=== PATIENT | female | born 1990 | race Caucasian/White ===

== ENCOUNTER 2017-10-09 13:43 | Emergency (ER) | payer OTHER ==
--- NOTE | 2017-10-09 14:29 | ERPHSYRPT ---
- History of Present Illness Time Seen by Provider: 10/09/17 14:12 Historian: patient, family Exam Limitations: no limitations Physician History: The patient is a 26-year-old female with her complaining of epigastric pain with nausea and vomiting for one month. She also has loose stools after every meal for the past month. 3 weeks ago she was seen in the [facility] for this complaint. She was given Macrobid for 7 days for UTI. After 2 days she saw a local nurse practitioner and discontinued the Macrobid. She was placed on Levaquin for 7 days without resolution. She returned to the nurse practitioner and was placed on an antiviral for possible shingles. She discontinued the antiviral before the duration of the prescription. She wakes up in the morning with a bad taste in her mouth. Eating worsens the epigastric pain. Her epigastric pain is worse upon rising in the morning. Her past medical history is significant for 2 C-sections. She is currently on Depo- Provera. Timing/Duration: week(s) (4), gradual onset, worse Activities at Onset: none Quality: aching, burning, sharpness Abdominal Pain Onset Location: epigastric Pain Radiation: no radiation Severity of Pain-Max: moderate Severity of Pain-Current: moderate Modifying Factors: Improves With: eating (worse), vomiting Associated Symptoms: diarrhea, nausea, vomiting Previous symptoms: same symptoms as today, recently seen, recently treated Allergies/Adverse Reactions: aspirin Allergy (Mild, Verified 10/09/17 14:33) Difficulty Breathing Penicillins Allergy (Mild, Verified 10/09/17 14:33) Hives amoxicillin [Amoxicillin] Allergy (Verified 10/09/17 14:33) Hives morphine Allergy (Verified 10/09/17 14:34) NSAIDS (Non-Steroidal Anti-Inflamma Allergy (Verified 10/09/17 14:33) Hives Hx Tetanus, Diphtheria Vaccination/Date Given: Yes (2009) Hx Influenza Vaccination/Date Given: No Hx Pneumococcal Vaccination/Date Given: No - Review of Systems Constitutional: No Fever, No Chills Eyes: No Symptoms Ears, Nose, & Throat: No Symptoms Respiratory: No Cough, No Dyspnea Cardiac: No Chest Pain, No Edema, No Syncope Abdominal/Gastrointestinal: Abdominal Pain, Nausea, Vomiting, Diarrhea Genitourinary Symptoms: No Dysuria Musculoskeletal: No Back Pain, No Neck Pain Skin: No Rash Neurological: No Dizziness, No Focal Weakness, No Sensory Changes Psychological: No Symptoms Endocrine: No Symptoms Hematologic/Lymphatic: No Symptoms Immunological/Allergic: No Symptoms All Other Systems: Reviewed and Negative - Past Medical History Pertinent Past Medical History: Yes Neurological History: No Pertinent History ENT History: No Pertinent History Cardiac History: No Pertinent History Respiratory History: Asthma Endocrine Medical History: No Pertinent History Musculoskeletal History: No Pertinent History GI Medical History: No Pertinent History History: No Pertinent History Psycho-Social History: No Pertinent History Female Reproductive Disorders: No Pertinent History Other Medical History: polycystic ovarian disease, miscarriage x2, pre eclamplsia - Past Surgical History Past Surgical History: Yes Neuro Surgical History: No Pertinent History Cardiac: No Pertinent History Respiratory: No Pertinent History Gastrointestinal: No Pertinent History Genitourinary: No Pertinent History Musculoskeletal: No Pertinent History Female Surgical History: Dilation & Curettage, Section Other Surgical History: tonsil, fatty tumor on leg, ingrown toenail - Social History Smoking Status: Former smoker How long have you smoked: 3 Exposure to second hand smoke: Yes Alcohol Use: None Drug Use: none Patient Lives Alone: No Significant Family History: no pertinent family hx - Nursing Vital Signs Nursing Vital Signs: Initial Vital Signs Temperature 98.6 F 10/09/17 13:53 Pulse Rate 109 H 10/09/17 13:53 Respiratory Rate 18 10/09/17 13:53 Blood Pressure 141/93 10/09/17 13:53 O2 Sat by Pulse Oximetry 98 10/09/17 13:53 Pain Scale Pain Intensity 6 - Physical Exam General Appearance: no apparent distress, alert Eye Exam: PERRL/EOMI, eyes nml inspection Ears, Nose, Throat Exam: normal ENT inspection, pharynx normal, moist mucous membranes Neck Exam: normal inspection, non-tender, supple, full range of motion Respiratory Exam: normal breath sounds, lungs clear, No respiratory distress Cardiovascular Exam: regular rate/rhythm, normal heart sounds Gastrointestinal/Abdomen Exam: normal bowel sounds, tenderness (epigastric) Pelvic Exam: not done Rectal Exam: not done Back Exam: normal inspection, normal range of motion, No CVA tenderness, No vertebral tenderness Extremity Exam: normal inspection, normal range of motion, pelvis stable Neurologic Exam: alert, oriented x 3, cooperative, normal mood/affect, nml cerebellar function, sensation nml, No motor deficits Skin Exam: normal color, warm, dry SpO2 Interpretation: normal Ordered Tests: Active Orders 24 hr Category Date Time Status AMYLASE Stat Lab 10/09/17 14:35 Completed CBC W DIFF Stat Lab 10/09/17 14:35 Completed CMP Stat Lab 10/09/17 14:35 Completed CULTURE,URINE Stat Lab 10/09/17 14:50 Received HCG QUALITATIVE,SERUM Stat Lab 10/09/17 Completed LIPASE Stat Lab 10/09/17 14:35 Completed UA W/ MICROSCOPIC Stat Lab 10/09/17 14:50 Completed Medication Summary Discontinued Medications Generic Name Dose Route Start Last Admin Trade Name Freq PRN Reason Stop Dose Admin Ondansetron HCl 4 mg 10/09/17 14:35 10/09/17 14:46 Zofran Odt 4 Mg PO 10/09/17 14:36 4 mg STAT ONE Administration Ondansetron HCl Confirm 10/09/17 14:43 Zofran Odt 4 Mg Administered 10/09/17 14:44 Dose 4 mg .ROUTE [employer] ONE Lab/Rad Data: Laboratory Result Diagrams 10/09/17 14:35 10/09/17 14:35 Laboratory Results 10/09/17 10/09/17 10/09/17 Range/Units Unknown 14:50 14:35 WBC (4.0-10.5) K/mm3 RBC (4.1-5.4) M/mm3 Hgb (12.0-16.0) gm/dl Hct (35-47) % MCV (78-100) fl MCH (26-32) pg MCHC (32-36) g/dl RDW (11.5-14.0) % Plt Count (150-450) K/mm3 MPV (6-9.5) fl Gran % (36.0-66.0) % Eos # (Auto) (0-0.5) Absolute Lymphs (auto) (1.0-4.6) Absolute Monos (auto) (0.0-1.3) Lymphocytes % (24.0-44.0) % Monocytes % (0.0-12.0) % Eosinophils % (0.00-5.0) % Basophils % (0.0-0.4) % Absolute Granulocytes (1.4-6.9) Basophils # (0-0.4) Sodium 138 (137-145) mmol/L Potassium 3.8 (3.5-5.1) mmol/L Chloride 105 (98-107) mmol/L Carbon Dioxide 20 L (22-30) mmol/L Anion Gap 16.2 H (5-15) MEQ/L BUN 12 (7-17) mg/dL Creatinine 0.59 (0.52-1.04) mg/dL Estimated GFR > 60.0 ML/MIN Glucose 253 H (74-106) mg/dL Calcium 9.2 (8.4-10.2) mg/dL Total Bilirubin 0.40 (0.2-1.3) mg/dL AST 13 L (14-36) U/L ALT 23 (0-35) U/L Alkaline Phosphatase 71 (38-126) U/L Serum Total Protein 7.2 (6.3-8.2) g/dL Albumin 4.0 (3.5-5.0) g/dL Amylase 47 (30-110) U/L Lipase 60 (23-300) U/L Serum , Qual NEGATIVE (Negative) Ur Collection Type VOID Urine Color YELLOW (YELLOW) Urine Appearance CLOUDY (CLEAR) Urine pH 5.0 (5-6) Ur Specific Warrior 1.030 (1.005-1.025) Urine Protein 2+ (Negative) Urine Ketones TRACE (NEGATIVE) Urine Blood 250 (0-5) Dave/ul Urine Nitrite NEGATIVE (NEGATIVE) Urine Bilirubin NEGATIVE (NEGATIVE) Urine Urobilinogen NORMAL (0-1) mg/dL Ur Leukocyte Esterase TRACE (NEGATIVE) Urine Microscopic RBC 0-2 (0-2) /HPF Urine Microscopic WBC 10-15 (0-5) /HPF Ur Epithelial Cells MODERATE (FEW) /HPF Calcium Oxalate Crystal 5-10 (NEGATIVE) /HPF Amorphous Crystals MODERATE (NEGATIVE) /HPF Urine Bacteria MODERATE (NEGATIVE) /HPF Urine Mucus SLIGHT (NEGATIVE) /HPF Urine Culture Reflexed YES (NO) Urine Glucose 250 (NEGATIVE) mg/dL Specimen Received 10/09/17 1500 10/09/17 Range/Units 14:35 WBC 8.2 (4.0-10.5) K/mm3 RBC 4.49 (4.1-5.4) M/mm3 Hgb 14.0 (12.0-16.0) gm/dl Hct 39.2 (35-47) % MCV 87.3 (78-100) fl MCH 31.2 (26-32) pg MCHC 35.7 (32-36) g/dl RDW 13.0 (11.5-14.0) % Plt Count 255 (150-450) K/mm3 MPV 9.4 (6-9.5) fl Gran % 54.4 (36.0-66.0) % Eos # (Auto) 0.35 (0-0.5) Absolute Lymphs (auto) 2.57 (1.0-4.6) Absolute Monos (auto) 0.77 (0.0-1.3) Lymphocytes % 31.3 (24.0-44.0) % Monocytes % 9.4 (0.0-12.0) % Eosinophils % 4.3 (0.00-5.0) % Basophils % 0.6 (0.0-0.4) % Absolute Granulocytes 4.47 (1.4-6.9) Basophils # 0.05 (0-0.4) Sodium (137-145) mmol/L Potassium (3.5-5.1) mmol/L Chloride (98-107) mmol/L Carbon Dioxide (22-30) mmol/L Anion Gap (5-15) MEQ/L BUN (7-17) mg/dL Creatinine (0.52-1.04) mg/dL Estimated GFR ML/MIN Glucose (74-106) mg/dL Calcium (8.4-10.2) mg/dL Total Bilirubin (0.2-1.3) mg/dL AST (14-36) U/L ALT (0-35) U/L Alkaline Phosphatase (38-126) U/L Serum Total Protein (6.3-8.2) g/dL Albumin (3.5-5.0) g/dL Amylase (30-110) U/L Lipase (23-300) U/L Serum , Qual (Negative) Ur Collection Type Urine Color (YELLOW) Urine Appearance (CLEAR) Urine pH (5-6) Ur Specific Warrior (1.005-1.025) Urine Protein (Negative) Urine Ketones (NEGATIVE) Urine Blood (0-5) Dave/ul Urine Nitrite (NEGATIVE) Urine Bilirubin (NEGATIVE) Urine Urobilinogen (0-1) mg/dL Ur Leukocyte Esterase (NEGATIVE) Urine Microscopic RBC (0-2) /HPF Urine Microscopic WBC (0-5) /HPF Ur Epithelial Cells (FEW) /HPF Calcium Oxalate Crystal (NEGATIVE) /HPF Amorphous Crystals (NEGATIVE) /HPF Urine Bacteria (NEGATIVE) /HPF Urine Mucus (NEGATIVE) /HPF Urine Culture Reflexed (NO) Urine Glucose (NEGATIVE) mg/dL Specimen Received - Progress Progress: improved Counseled pt/family regarding: lab results, diagnosis, need for follow-up - Departure Time of Disposition: 15:47 Departure Disposition: Home Clinical Impression: Blood glucose elevated, UTI (urinary tract infection), Gastritis Condition: Stable Critical Care Time: No Referrals: BERNARDO LOPEZ NP [Primary Care Provider] - Additional Instructions: You have gastritis. Take omeprazole 20 mg daily for 14 days. You have a UTI. Take Keflex 500 mg 4 times a day for 7 days. You have nausea. Take Zofran ODT 4 mg every 6 hours as needed. You also have an elevated blood glucose level. Please follow-up with your primary medical doctor this week for further evaluation. Prescriptions: Ondansetron ODT 4 MG [Zofran Odt 4 mg] 1 tab PO Q6H PRN PRN #10 tab.rapdis PRN Reason: Nausea/Vomiting Ondansetron ODT 4 MG [Zofran Odt 4 mg] 1 tab PO Q6H PRN PRN #10 tab.rapdis PRN Reason: Nausea/Vomiting Cephalexin [Keflex] 500 mg PO QID #28 capsule Cephalexin Mh 500 mg [Keflex 500 mg] 1 cap PO QID #28 capsule Omeprazole 20 MG [Prilosec 20 mg] 20 mg PO DAILY #14 capsule. Omeprazole 20 MG [Prilosec 20 mg] 20 mg PO DAILY #14 capsule.
[2017-10-09] MEDS ORDERED: ZOFRAN ODT 4 MG PO ONE (14:35)
[2017-10-09] MEDS ORDERED: ZOFRAN ODT 4 MG ONE (14:43)
[2017-10-09 15:02] LABS: BASOPHIL % 0.6 % (0.0-0.4); Basophil (Absolute #) 0.05 (0-0.4); Eosinophil % 4.3 % (0.00-5.0); Eosinophil (Absolute #) 0.35 (0-0.5); Granulocyte Absolute (ANC) 4.47 (1.4-6.9); Granulocytes % 54.4 % (36.0-66.0); Hematocrit 39.2 % (35-47); Lymphocyte (Absolute #) 2.57 (1.0-4.6); Lymphocytes % 31.3 % (24.0-44.0); Mean Cell Volume 87.3 fl (78-100); Mean Corpuscular Hemoglobin 31.2 pg (26-32); Mean Corpuscular Hgb Concent. 35.7 g/dl (32-36); Mean Platelet Volume 9.4 fl (6-9.5); Monocyte (Absolute #) 0.77 (0.0-1.3); Monocytes % 9.4 % (0.0-12.0); Platelet Count 255 K/mm3 (150-450); Red Blood Count 4.49 M/mm3 (4.1-5.4); White Blood Count 8.2 K/mm3 (4.0-10.5)
[2017-10-09 15:17] LABS: Amourphous Crystal MODERATE /HPF (NEGATIVE); Appearance CLOUDY (CLEAR); Bacteria MODERATE /HPF (NEGATIVE); Bilirubin NEGATIVE (NEGATIVE); Blood 250 Ery/ul (0-5); Epithelial Cells MODERATE /HPF (FEW); Glucose 250 mg/dL (NEGATIVE); Ketones TRACE (NEGATIVE); Leukocyte Esterase TRACE (NEGATIVE); Mucus SLIGHT /HPF (NEGATIVE); Nitrite NEGATIVE (NEGATIVE); Protein,Urine Dip 2+ (Negative); RBC 0-2 /HPF (0-2); Urobilinogen NORMAL mg/dL (0-1)
[2017-10-09 15:19] LABS: ALKALINE PHOSPHATASE 71 U/L (38-126); AMYLASE 47 U/L (30-110); ANION GAP 16.2 MEQ/L (5-15); BLOOD UREA NITROGEN 12 mg/dL (7-17); CHLORIDE 105 mmol/L (98-107); Calcium 9.2 mg/dL (8.4-10.2); Carbon Dioxide 20 mmol/L (22-30); Creatinine 1 0.59 mg/dL (0.52-1.04); Glucose 253 mg/dL (74-106); LIPASE 60 U/L (23-300); Potassium 3.8 mmol/L (3.5-5.1); SGOT/AST 13 U/L (14-36); SGPT/ALT 23 U/L (0-35); SODIUM 138 mmol/L (137-145); Total Protein 7.2 g/dL (6.3-8.2)
[2017-10-09 16:08] VITALS: BP 121/76; PULSE 90; O2SAT 99
== END 2017-10-09 16:08 | disposition home or self-care (01) ==
LOC: ED 13:43
DX: K29.70 Gastritis, unspecified, without bleeding (principal); N39.0 Urinary tract infection, site not specified; R11.2 Nausea with vomiting, unspecified; R19.7 Diarrhea, unspecified; R73.02 Impaired glucose tolerance (oral)
CPT/HCPCS: 36415; 80053; 81000; 82150; 83690; 84703; 85025; 87086; 99283; Q0162

== ENCOUNTER 2017-10-31 19:17 | Emergency (ER) | payer OTHER ==
[2017-10-31 19:34] VITALS: O2SAT 97
[2017-10-31] MEDS ORDERED: Phenergan 25 MG INJ ONE (19:39)
[2017-10-31] MEDS ORDERED: Sodium Chloride 0.9% 1000 ML 1,000 ML ONE ×2 (19:39→20:17)
--- NOTE | 2017-10-31 19:42 | ERPHSYRPT ---
- History of Present Illness Time Seen by Provider: 10/31/17 19:37 Historian: patient Exam Limitations: no limitations Patient Subjective Stated Complaint: N&V since 0700 today, diarhea Triage Nursing Assessment: Pt c/o pain in both upper quadrants of abdomen, N&V since 0700, diarhea, afebrile, pulse 125, BP 151/95, hypoactive bowel sounds, doesn't appear to be in any distress Physician History: 26-year-old white female with history of asthma, polycystic ovary disease, preeclampsia when she was , diabetes type 2. Patient arrives with complaint of epigastric abdominal pain, vomiting, diarrhea symptoms since this morning while leaving [facility] where her daughter was at. She has no fevers no urinary symptoms no chest pain. Past medical history includes asthma, polycystic ovary disease, preeclampsia when she was , diabetes type 2, she's also been told she has gastritis... Past surgical history includes , D&C, fatty tumor on leg removed. Social history positive tobacco use denies alcohol or illicit drug use. Timing/Duration: today (symptoms since this morning) Activities at Onset: none Quality: burning, cramping Abdominal Pain Onset Location: epigastric Pain Radiation: no radiation Severity of Pain-Max: moderate Severity of Pain-Current: mild Modifying Factors: Improves With: nothing Associated Symptoms: diarrhea, nausea, vomiting, No back, No chest pain, No diaphoresis, No fever/chills, No fatigue, No headache, No heartburn, No loss of appetite, No neck pain, No rash, No shortness of breath, No syncope Previous symptoms: same symptoms as today (seen 1 week ago for similar complaints, dx with gastritis) Allergies/Adverse Reactions: aspirin Allergy (Mild, Verified 10/31/17 19:35) Difficulty Breathing Penicillins Allergy (Mild, Verified 10/31/17 19:35) Hives amoxicillin [Amoxicillin] Allergy (Verified 10/31/17 19:35) Hives morphine Allergy (Verified 10/31/17 19:35) NSAIDS (Non-Steroidal Anti-Inflamma Allergy (Verified 10/31/17 19:35) Hives Home Medications: Dapagliflozin Propanediol [Farxiga] 5 mg PO DAILY 10/31/17 [History] Insulin Detemir [Levemir] 25 units SQ HS 10/31/17 [History] Lisinopril/Hydrochlorothiazide [Lisinopril-Hctz 10-12.5 mg Tab] 1 each PO DAILY 10/31/17 [History] Hx Tetanus, Diphtheria Vaccination/Date Given: Yes (2009) Hx Influenza Vaccination/Date Given: No Hx Pneumococcal Vaccination/Date Given: No - Review of Systems Constitutional: No Fever, No Chills Eyes: No Symptoms Ears, Nose, & Throat: No Symptoms Respiratory: No Cough, No Dyspnea Cardiac: No Chest Pain, No Edema, No Syncope Abdominal/Gastrointestinal: Abdominal Pain, Nausea, Vomiting, Diarrhea, No Constipation, No Hematemesis, No Hematochezia, No Melena, No Dysphagia, No Appetite Changes Genitourinary Symptoms: No Dysuria Musculoskeletal: No Back Pain, No Neck Pain Skin: No Rash Neurological: No Dizziness, No Focal Weakness, No Sensory Changes Psychological: No Symptoms Endocrine: No Symptoms All Other Systems: Reviewed and Negative - Past Medical History Pertinent Past Medical History: Yes Neurological History: No Pertinent History ENT History: No Pertinent History Cardiac History: No Pertinent History Respiratory History: Asthma Endocrine Medical History: No Pertinent History, Diabetes Type II Musculoskeletal History: No Pertinent History GI Medical History: No Pertinent History History: No Pertinent History Psycho-Social History: No Pertinent History Female Reproductive Disorders: No Pertinent History Other Medical History: polycystic ovarian disease, miscarriage x2, pre eclamplsia - Past Surgical History Past Surgical History: Yes Neuro Surgical History: No Pertinent History Cardiac: No Pertinent History Respiratory: No Pertinent History Gastrointestinal: No Pertinent History Genitourinary: No Pertinent History Musculoskeletal: No Pertinent History Female Surgical History: Dilation & Curettage, Section Other Surgical History: tonsil, fatty tumor on leg, ingrown toenail - Social History Smoking Status: Current every day smoker How long have you smoked: 6 months Exposure to second hand smoke: Yes Alcohol Use: None Drug Use: none Patient Lives Alone: No Significant Family History: no pertinent family hx - Female History Hx Last Menstrual Period: 10/09/2017 Hx Now: No - Nursing Vital Signs Nursing Vital Signs: Initial Vital Signs Temperature 98.7 F 10/31/17 19:21 Pulse Rate 135 H 10/31/17 19:21 Blood Pressure 151/95 10/31/17 19:21 O2 Sat by Pulse Oximetry 97 10/31/17 19:21 Pain Scale Pain Intensity 3 - Physical Exam General Appearance: no apparent distress, alert Eye Exam: PERRL/EOMI, eyes nml inspection Ears, Nose, Throat Exam: normal ENT inspection, pharynx normal, moist mucous membranes Neck Exam: normal inspection, non-tender, supple, full range of motion Respiratory Exam: normal breath sounds, lungs clear, No respiratory distress Cardiovascular Exam: regular rate/rhythm, normal heart sounds, normal peripheral pulses, capillary refill <2 sec Gastrointestinal/Abdomen Exam: soft, normal bowel sounds, tenderness (epigastic tenderness), No distention, No mass, No guarding Back Exam: normal inspection, normal range of motion, No CVA tenderness, No vertebral tenderness Extremity Exam: normal inspection, normal range of motion, pelvis stable Neurologic Exam: alert, oriented x 3, cooperative, diagnostic sales specialist II-XII nml as tested, normal mood/affect, nml cerebellar function, sensation nml, No motor deficits Skin Exam: normal color, warm, dry SpO2 Interpretation: normal (97%) SpO2: 97 Oxygen Delivery: Room Air - Course Nursing assessment & vital signs reviewed: Yes EKG Interpreted by Me: RATE (120 bpm), Sinus Rhythm, NORMAL AXIS, Other (EKG: Sinus tachycardia, 120 bpm, normal axis, no acute ST or T wave changes, normal EKG) Ordered Tests: Active Orders 24 hr Category Date Time Status Accucheck STAT Care 10/31/17 19:37 Active EKG-ER Only STAT Care 10/31/17 19:35 Active IV Insertion STAT Care 10/31/17 19:35 Active AMYLASE Stat Lab 10/31/17 19:30 Completed BLOOD CULTURE Stat Lab 10/31/17 20:10 Received CBC W DIFF Stat Lab 10/31/17 19:30 Completed CMP Stat Lab 10/31/17 19:30 Completed CULTURE,URINE Stat Lab 10/31/17 19:37 Received HCG QUALITATIVE,SERUM Stat Lab 10/31/17 19:30 Completed LIPASE Stat Lab 10/31/17 19:30 Completed Lactic Acid Stat Lab 10/31/17 19:40 Completed Lactic Acid Stat Lab 10/31/17 22:05 Completed UA W/ MICROSCOPIC Stat Lab 10/31/17 19:37 Completed Urine Triage Profile Stat Lab 10/31/17 20:01 Completed VENOUS BLOOD GAS Urgent Lab 10/31/17 19:40 Completed Medication Summary Discontinued Medications Generic Name Dose Route Start Last Admin Trade Name Freq PRN Reason Stop Dose Admin Sodium Chloride 1,000 mls @ 999 mls/hr 10/31/17 19:35 10/31/17 20:42 Sodium Chloride 0.9% 1000 Ml IV 10/31/17 20:35 Infused .Q1H1M STA Infusion Sodium Chloride Confirm 10/31/17 19:39 Sodium Chloride 0.9% 1000 Ml Administered 10/31/17 19:40 Dose 1,000 mls @ ud .ROUTE .STK-MED ONE Sodium Chloride 1,000 mls @ 999 mls/hr 10/31/17 19:51 10/31/17 21:39 Sodium Chloride 0.9% 1000 Ml IV 10/31/17 20:51 Infused .Q1H1M STA Infusion Ceftriaxone Sodium/Dextrose 1 g in 50 mls @ 100 mls/hr 10/31/17 20:16 20:42 Rocephin 1 Gm-D5w 50 Ml Bag IV 10/31/17 20:45 Infused STAT STA Infusion Sodium Chloride Confirm 10/31/17 20:17 Sodium Chloride 0.9% 1000 Ml Administered 10/31/17 20:18 Dose 1,000 mls @ ud .ROUTE .STK-MED ONE Ceftriaxone Sodium/Dextrose Confirm 10/31/17 20:17 Rocephin 1 Gm-D5w 50 Ml Bag Administered 10/31/17 20:18 Dose 1 g in 50 mls @ ud IV .STK-MED ONE Promethazine HCl 12.5 mg 10/31/17 19:35 10/31/17 19:44 Phenergan 25 Mg Inj IV 10/31/17 19:36 12.5 mg STAT ONE Administration Promethazine HCl Confirm 10/31/17 19:39 Phenergan 25 Mg Inj Administered 10/31/17 19:40 Dose 25 mg .ROUTE .STK-MED ONE Lab/Rad Data: Laboratory Result Diagrams 10/31/17 19:30 10/31/17 19:30 Laboratory Results 10/31/17 10/31/17 10/31/17 Range/Units 22:05 20:01 19:40 WBC (4.0-10.5) K/mm3 RBC (4.1-5.4) M/mm3 Hgb (12.0-16.0) gm/dl Hct (35-47) % MCV (78-100) fl MCH (26-32) pg MCHC (32-36) g/dl RDW (11.5-14.0) % Plt Count (150-450) K/mm3 MPV (6-9.5) fl Gran % (36.0-66.0) % Eos # (Auto) (0-0.5) Absolute Lymphs (auto) (1.0-4.6) Absolute Monos (auto) (0.0-1.3) Lymphocytes % (24.0-44.0) % Monocytes % (0.0-12.0) % Eosinophils % (0.00-5.0) % Basophils % (0.0-0.4) % Absolute Granulocytes (1.4-6.9) Basophils # (0-0.4) pO2/FiO2 Ratio 21.0 % VBG pH 7.37 (7.32-7.42) VBG pCO2 at Pat Temp 35 L (42-55) mm/Hg VBG pO2 at Pat Temp 42 H (25-40) mm/Hg VBG HCO3 20.2 L (22-28) meq/L VBG O2 Sat (Mile) 83.4 L (95-100) VBG Base Excess -4.3 L (-2.0-2.0) VBG Hemoglobin 16.0 VBG Carboxyhemoglobin 4.6 (0.0-6.9) % T HGB POC Potassium 3.7 (3.5-5.1) Sodium (137-145) mmol/L Potassium (3.5-5.1) mmol/L Chloride (98-107) mmol/L Carbon Dioxide (22-30) mmol/L Anion Gap (5-15) MEQ/L BUN (7-17) mg/dL Creatinine (0.52-1.04) mg/dL Estimated GFR ML/MIN Glucose (74-106) mg/dL Lactic Acid 1.1 (0.4-2.0) Calcium (8.4-10.2) mg/dL Total Bilirubin (0.2-1.3) mg/dL AST (14-36) U/L ALT (0-35) U/L Alkaline Phosphatase (38-126) U/L Serum Total Protein (6.3-8.2) g/dL Albumin (3.5-5.0) g/dL Amylase (30-110) U/L Lipase (23-300) U/L Serum , Qual (Negative) Ur Collection Type Urine Color (YELLOW) Urine Appearance (CLEAR) Urine pH (5-6) Ur Specific Stanton (1.005-1.025) Urine Protein (Negative) Urine Ketones (NEGATIVE) Urine Blood (0-5) Dave/ul Urine Nitrite (NEGATIVE) Urine Bilirubin (NEGATIVE) Urine Urobilinogen (0-1) mg/dL Ur Leukocyte Esterase (NEGATIVE) Urine Microscopic RBC (0-2) /HPF Urine Microscopic WBC (0-5) /HPF Ur Epithelial Cells (FEW) /HPF Urine Bacteria (NEGATIVE) /HPF Urine Mucus (NEGATIVE) /HPF Urine Culture Reflexed (NO) Urine Glucose (NEGATIVE) mg/dL Urine Opiates Level NEGATIVE (NEGATIVE) Ur Methadone NEGATIVE (NEGATIVE) Urine Barbiturates NEGATIVE (NEGATIVE) Ur Phencyclidine (PCP) NEGATIVE (NEGATIVE) Urine Amphetamine NEGATIVE (NEGATIVE) U Benzodiazepine Level NEGATIVE (NEGATIVE) Urine Cocaine NEGATIVE (NEGATIVE) Urine Marijuana (THC) NEGATIVE (NEGATIVE) Specimen Received 10/31/17 10/31/17 10/31/17 Range/Units 19:40 19:37 19:30 WBC (4.0-10.5) K/mm3 RBC (4.1-5.4) M/mm3 Hgb (12.0-16.0) gm/dl Hct (35-47) % MCV (78-100) fl MCH (26-32) pg MCHC (32-36) g/dl RDW (11.5-14.0) % Plt Count (150-450) K/mm3 MPV (6-9.5) fl Gran % (36.0-66.0) % Eos # (Auto) (0-0.5) Absolute Lymphs (auto) (1.0-4.6) Absolute Monos (auto) (0.0-1.3) Lymphocytes % (24.0-44.0) % Monocytes % (0.0-12.0) % Eosinophils % (0.00-5.0) % Basophils % (0.0-0.4) % Absolute Granulocytes (1.4-6.9) Basophils # (0-0.4) pO2/FiO2 Ratio % VBG pH (7.32-7.42) VBG pCO2 at Pat Temp (42-55) mm/Hg VBG pO2 at Pat Temp (25-40) mm/Hg VBG HCO3 (22-28) meq/L VBG O2 Sat (Mile) (95-100) VBG Base Excess (-2.0-2.0) VBG Hemoglobin VBG Carboxyhemoglobin (0.0-6.9) % T HGB POC Potassium (3.5-5.1) Sodium (137-145) mmol/L Potassium (3.5-5.1) mmol/L Chloride (98-107) mmol/L Carbon Dioxide (22-30) mmol/L Anion Gap (5-15) MEQ/L BUN (7-17) mg/dL Creatinine (0.52-1.04) mg/dL Estimated GFR ML/MIN Glucose (74-106) mg/dL Lactic Acid 2.6 H (0.4-2.0) Calcium (8.4-10.2) mg/dL Total Bilirubin (0.2-1.3) mg/dL AST (14-36) U/L ALT (0-35) U/L Alkaline Phosphatase (38-126) U/L Serum Total Protein (6.3-8.2) g/dL Albumin (3.5-5.0) g/dL Amylase (30-110) U/L Lipase (23-300) U/L Serum , Qual NEGATIVE (Negative) Ur Collection Type CLEAN CATCH Urine Color DARK YELLOW (YELLOW) Urine Appearance SLIGHTLY CLOUDY (CLEAR) Urine pH 5.0 (5-6) Ur Specific Stanton 1.030 (1.005-1.025) Urine Protein 30 (Negative) Urine Ketones NEGATIVE (NEGATIVE) Urine Blood 50 (0-5) Dave/ul Urine Nitrite NEGATIVE (NEGATIVE) Urine Bilirubin NEGATIVE (NEGATIVE) Urine Urobilinogen NORMAL (0-1) mg/dL Ur Leukocyte Esterase 1+ (NEGATIVE) Urine Microscopic RBC 5-10 (0-2) /HPF Urine Microscopic WBC 15-25 (0-5) /HPF Ur Epithelial Cells FEW (FEW) /HPF Urine Bacteria FEW (NEGATIVE) /HPF Urine Mucus SLIGHT (NEGATIVE) /HPF Urine Culture Reflexed YES (NO) Urine Glucose 1000 (NEGATIVE) mg/dL Urine Opiates Level (NEGATIVE) Ur Methadone (NEGATIVE) Urine Barbiturates (NEGATIVE) Ur Phencyclidine (PCP) (NEGATIVE) Urine Amphetamine (NEGATIVE) U Benzodiazepine Level (NEGATIVE) Urine Cocaine (NEGATIVE) Urine Marijuana (THC) (NEGATIVE) Specimen Received 10/31/17193610/31/17 10/31/17 Range/Units 19:30 19:30 WBC 12.8 H (4.0-10.5) K/mm3 RBC 5.14 (4.1-5.4) M/mm3 Hgb 16.0 (12.0-16.0) gm/dl Hct 43.9 (35-47) % MCV 85.4 (78-100) fl MCH 31.1 (26-32) pg MCHC 36.4 H (32-36) g/dl RDW 13.1 (11.5-14.0) % Plt Count 310 (150-450) K/mm3 MPV 9.8 H (6-9.5) fl Gran % 73.4 H (36.0-66.0) % Eos # (Auto) 0.25 (0-0.5) Absolute Lymphs (auto) 2.27 (1.0-4.6) Absolute Monos (auto) 0.83 (0.0-1.3) Lymphocytes % 17.8 L (24.0-44.0) % Monocytes % 6.5 (0.0-12.0) % Eosinophils % 2.0 (0.00-5.0) % Basophils % 0.3 (0.0-0.4) % Absolute Granulocytes 9.36 H (1.4-6.9) Basophils # 0.04 (0-0.4) pO2/FiO2 Ratio % VBG pH (7.32-7.42) VBG pCO2 at Pat Temp (42-55) mm/Hg VBG pO2 at Pat Temp (25-40) mm/Hg VBG HCO3 (22-28) meq/L VBG O2 Sat (Mile) (95-100) VBG Base Excess (-2.0-2.0) VBG Hemoglobin VBG Carboxyhemoglobin (0.0-6.9) % T HGB POC Potassium (3.5-5.1) Sodium 139 (137-145) mmol/L Potassium 4.0 (3.5-5.1) mmol/L Chloride 105 (98-107) mmol/L Carbon Dioxide 19 L (22-30) mmol/L Anion Gap 19.1 H (5-15) MEQ/L BUN 12 (7-17) mg/dL Creatinine 0.58 (0.52-1.04) mg/dL Estimated GFR > 60.0 ML/MIN Glucose 199 H (74-106) mg/dL Lactic Acid (0.4-2.0) Calcium 10.0 (8.4-10.2) mg/dL Total Bilirubin 0.60 (0.2-1.3) mg/dL AST 15 (14-36) U/L ALT 26 (0-35) U/L Alkaline Phosphatase 86 (38-126) U/L Serum Total Protein 7.9 (6.3-8.2) g/dL Albumin 4.7 (3.5-5.0) g/dL Amylase 52 (30-110) U/L Lipase 72 (23-300) U/L Serum , Qual (Negative) Ur Collection Type Urine Color (YELLOW) Urine Appearance (CLEAR) Urine pH (5-6) Ur Specific Stanton (1.005-1.025) Urine Protein (Negative) Urine Ketones (NEGATIVE) Urine Blood (0-5) Dave/ul Urine Nitrite (NEGATIVE) Urine Bilirubin (NEGATIVE) Urine Urobilinogen (0-1) mg/dL Ur Leukocyte Esterase (NEGATIVE) Urine Microscopic RBC (0-2) /HPF Urine Microscopic WBC (0-5) /HPF Ur Epithelial Cells (FEW) /HPF Urine Bacteria (NEGATIVE) /HPF Urine Mucus (NEGATIVE) /HPF Urine Culture Reflexed (NO) Urine Glucose (NEGATIVE) mg/dL Urine Opiates Level (NEGATIVE) Ur Methadone (NEGATIVE) Urine Barbiturates (NEGATIVE) Ur Phencyclidine (PCP) (NEGATIVE) Urine Amphetamine (NEGATIVE) U Benzodiazepine Level (NEGATIVE) Urine Cocaine (NEGATIVE) Urine Marijuana (THC) (NEGATIVE) Specimen Received - Progress Progress: improved Progress Note: 10/31/17 19:54 26-year-old white female with history of diabetes, asthma, polycystic ovary disease, Arrives with complaint of epigastric pain symptoms since this morning associated with nausea vomiting and diarrhea. Patient afebrile respiratory rates normal heart rate elevated on arrival at 135 blood pressure stable at 151/95 Patient's pulse ox is 97% good perfusion to all extremities patient really in no acute distress. Heart rate comes down to 120 immediately after assessment. Patient with elevated lactate of 2.6. No signs of sepsis. Patient receiving 2 L of normal saline she is given Phenergan 12.5 IV. Appropriate labs have been obtained urine urine cultures and blood cultures have been obtained. Patient does have diabetes and does have elevated blood sugar of 183. 10/31/17 19:56 10/31/17 20:16 Patient's urine is remarkable for 15-25 white cells and 5-10 red cells also glucose 1000 Patient's chemistry remarkable for a glucose of 199 anion gap is elevated at 19.1 remainder of chemistry is essentially negative Patient is receiving 2 L of normal saline Will add Rocephin 1 g IV. Patient has received Keflex in the past without problems despite her stated allergy of penicillin. Patient currently shows no signs of distress she has good peripheral perfusion, blood pressure 119/88 pulse 91 oxygen saturation 98%. Impression 1 nausea vomiting diarrhea 2. Hyperglycemia 3. Urinary tract infection . Plan: Continue IV normal saline 2 L bolus Recheck lactate. Consider home with Bactrim and Phenergan. 10/31/17 22:31 Patient markedly improved after 2 L of normal saline at 1 g of Rocephin and Phenergan 12.5 mg IV. Lactate is 1.1 on repeat. will discharge Bactrim phenergan and plenty of fluids. - Departure Time of Disposition: 22:32 Departure Disposition: Home Clinical Impression: Hyperglycemia, Volume depletion Urinary tract infection Qualifiers: Urinary tract infection type: site unspecified Hematuria presence: with hematuria Qualified Code(s): N39.0 - Urinary tract infection, site not specified Vomiting Qualifiers: Vomiting type: unspecified Vomiting Intractability: non-intractable Nausea presence: with nausea Qualified Code(s): R11.2 - Nausea with vomiting, unspecified Condition: Fair Critical Care Time: No Referrals: BERNARDO LOPEZ NP [Primary Care Provider] - Instructions: Urinary Tract Infection, Adult (DC) Additional Instructions: Return home. Plenty of fluids clear fluids only 24-48 hours if abdominal pain nausea or vomiting. Phenergan 25 mg orally every 4-6 as needed for nausea, vomiting, or abdominal pain. Bactrim DS one orally twice a day for 10 days Follow-up with your family doctor Return for acute distress or for severe symptoms. Prescriptions: Nitrofurantoin Macro 100 mg [Macrobid 100MG Capsule] 100 mg PO BID #20 cap Promethazine HCl 25 mg [Phenergan 25 mg] 25 mg PO Q4-6HPRN PRN #12 tablet PRN Reason: nausea, vomiting, or abd pain
[2017-10-31] MEDS: Phenergan 25 MG INJ IV ONE (19:44)
[2017-10-31] MEDS: Sodium Chloride 0.9% 1000 ML 1,000 ML IV STA ×2 (19:44→20:19)
[2017-10-31 19:46] LABS: BASOPHIL % 0.3 % (0.0-0.4); Basophil (Absolute #) 0.04 (0-0.4); Eosinophil (Absolute #) 0.25 (0-0.5); Granulocyte Absolute (ANC) 9.36 (1.4-6.9); Granulocytes % 73.4 % (36.0-66.0); Hematocrit 43.9 % (35-47); Lymphocyte (Absolute #) 2.27 (1.0-4.6); Lymphocytes % 17.8 % (24.0-44.0); Mean Cell Volume 85.4 fl (78-100); Mean Corpuscular Hemoglobin 31.1 pg (26-32); Mean Corpuscular Hgb Concent. 36.4 g/dl (32-36); Mean Platelet Volume 9.8 fl (6-9.5); Monocyte (Absolute #) 0.83 (0.0-1.3); Monocytes % 6.5 % (0.0-12.0); Platelet Count 310 K/mm3 (150-450); Red Blood Count 5.14 M/mm3 (4.1-5.4); Red Cell Distribution Width 13.1 % (11.5-14.0); White Blood Count 12.8 K/mm3 (4.0-10.5)
[2017-10-31 19:48] LABS: VBG BASE EXCESS -4.3 (-2.0-2.0); VBG CARBOXYHEMOGLOBIN 4.6 % T HGB (0.0-6.9); VBG HCO3- 20.2 meq/L (22-28); VBG O2 SATURATION 83.4 (95-100); VBG POTASSIUM 3.7 (3.5-5.1); VBG pH 7.37 (7.32-7.42)
[2017-10-31 19:50] LABS: Lactic Acid 2.6 (0.4-2.0)
[2017-10-31 20:02] VITALS: PULSE 96
[2017-10-31 20:07] LABS: Appearance SLIGHTLY CLOUDY (CLEAR); Bilirubin NEGATIVE (NEGATIVE); Blood 50 Ery/ul (0-5); Glucose 1000 mg/dL (NEGATIVE); Ketones NEGATIVE (NEGATIVE); Leukocyte Esterase 1+ (NEGATIVE); Nitrite NEGATIVE (NEGATIVE); Protein,Urine Dip 30 (Negative); Urobilinogen NORMAL mg/dL (0-1)
[2017-10-31 20:08] LABS: Mucus SLIGHT /HPF (NEGATIVE); WBC 15-25 /HPF (0-5)
[2017-10-31 20:09] LABS: Bacteria FEW /HPF (NEGATIVE); Epithelial Cells FEW /HPF (FEW)
[2017-10-31 20:11] LABS: ALBUMIN 4.7 g/dL (3.5-5.0); ALKALINE PHOSPHATASE 86 U/L (38-126); AMYLASE 52 U/L (30-110); ANION GAP 19.1 MEQ/L (5-15); BLOOD UREA NITROGEN 12 mg/dL (7-17); CHLORIDE 105 mmol/L (98-107); Carbon Dioxide 19 mmol/L (22-30); Creatinine 1 0.58 mg/dL (0.52-1.04); Glucose 199 mg/dL (74-106); LIPASE 72 U/L (23-300); SGOT/AST 15 U/L (14-36); SGPT/ALT 26 U/L (0-35); SODIUM 139 mmol/L (137-145); Total Protein 7.9 g/dL (6.3-8.2)
[2017-10-31] MEDS ORDERED: ROCEPHIN 1 Gm-D5w 50 ml Bag** 1 G/50 ML IVPB IV ONE (20:17)
[2017-10-31] MEDS: ROCEPHIN 1 Gm-D5w 50 ml Bag** 1 G/50 ML IVPB IV STA (20:19)
[2017-10-31 20:30] LABS: Amphetamine,Urine NEGATIVE (NEGATIVE); Barbiturate,Urine NEGATIVE (NEGATIVE); Benzodiazepine,Urine NEGATIVE (NEGATIVE); Cocaine,Urine NEGATIVE (NEGATIVE); Methadone,Urine NEGATIVE (NEGATIVE); Opiate,Urine NEGATIVE (NEGATIVE); PCP,Urine NEGATIVE (NEGATIVE); THC,Urine NEGATIVE (NEGATIVE)
[2017-10-31 22:45] VITALS: BP 135/81
== END 2017-10-31 22:46 | disposition home or self-care (01) ==
LOC: ED 19:17
DX: E11.65 Type 2 diabetes mellitus with hyperglycemia (principal); E86.9 Volume depletion, unspecified; N39.0 Urinary tract infection, site not specified; R10.13 Epigastric pain; R11.2 Nausea with vomiting, unspecified; R19.7 Diarrhea, unspecified; Z79.899 Other long term (current) drug therapy; Z79.4 Long term (current) use of insulin
CPT/HCPCS: 36000; 36415; 80053; 80307; 81000; 82150; 82805; 82962; 83605; 83690; 84703; 85025; 87040; 87086; 93005; 96360; 96361; 96374; 99284; J0696; J2550

== ENCOUNTER 2021-07-05 20:25 | Emergency (ER) | payer OTHER ==
[2021-07-05] MEDS ORDERED: Cleocin Phosphate IV 600 MG/4 ML IM STA (20:46)
[2021-07-05] MEDS ORDERED: Cleocin Phosphate IV 600 MG/4 ML ONE (20:53)
--- NOTE | 2021-07-05 21:02 | ERPHSYRPT ---
- History of Present Illness Time Seen by Provider: 07/05/21 20:32 Source: patient Exam Limitations: no limitations Patient Subjective Stated Complaint: pt states she has an abscess on her lt lower leg. states pain is increasing and redness has increased since it was marked today. states she had mrsa last year. Triage Nursing Assessment: pt alert and oriented, answers questions approp. pt ambulatory with steady gait noted. respirations nonlabored. skin warm and dry. redness and warmth noted to lt lower leg. pt reports tenderness to tough. Physician History: 30 years old type I diabetic presented in the ER with chief complaint of left leg swelling and redness for the last couple of days with progressive worsening. Today it is increasing in size and causing moderate intensity sharp pain with palpation, ambulation. No fever or chills reported does have history of MRSA. Timing/Duration: day(s) (2), constant, gradual onset, worse Quality: itchy, painful Severity: moderate Location: extremities Possible Causes: no cause identified Associated Symptoms: rash, swelling/mass/lumps Allergies/Adverse Reactions: NSAIDS (Non-Steroidal Anti-Inflamma Allergy (Severe, Verified 07/05/21 20:50) Anaphylactic Reaction Penicillins Allergy (Severe, Verified 07/05/21 20:50) Anaphylactic Reaction aspirin Allergy (Mild, Verified 07/05/21 20:49) Difficulty Breathing amoxicillin [Amoxicillin] Allergy (Unknown, Verified 07/05/21 20:50) Hives lisinopril Allergy (Unknown, Verified 07/05/21 20:50) morphine Allergy (Unknown, Verified 07/05/21 20:50) Home Medications: Dapagliflozin Propanediol [Farxiga] 5 mg PO DAILY 10/31/17 [History] Insulin Detemir [Levemir] 25 units SQ HS 10/31/17 [History] Lisinopril/Hydrochlorothiazide [Lisinopril-Hctz 10-12.5 mg Tab] 1 each PO DAILY 10/31/17 [History] Hx Tetanus, Diphtheria Vaccination/Date Given: No (2010) Hx Influenza Vaccination/Date Given: No Hx Pneumococcal Vaccination/Date Given: No Immunizations Up to Date: Yes Travel Risk - International Travel Have you traveled outside of the country in past 3 weeks: No - Coronavirus Screening Are you exhibiting any of the following symptoms?: No Close contact with a COVID-19 positive Pt in past 14-21 Days: No - Vaccine Status Have you recieved a Covid-19 vaccination: Yes Environmental Resource Specialist: [employer] - Vaccination Dates Date of 2cond Vaccination (if applicable): july 2020 - Review of Systems Constitutional: No Symptoms Ears, Nose, & Throat: No Symptoms Respiratory: No Symptoms Cardiac: No Symptoms Abdominal/Gastrointestinal: No Symptoms Genitourinary Symptoms: No Symptoms Musculoskeletal: No Symptoms Skin: Induration, Rash, Skin Lesions Neurological: No Symptoms Psychological: No Symptoms Endocrine: No Symptoms Hematologic/Lymphatic: No Symptoms - Past Medical History Pertinent Past Medical History: Yes Neurological History: No Pertinent History ENT History: No Pertinent History Cardiac History: No Pertinent History Respiratory History: Asthma Endocrine Medical History: No Pertinent History, Diabetes Type II Musculoskeletal History: No Pertinent History GI Medical History: No Pertinent History History: No Pertinent History Psycho-Social History: No Pertinent History Female Reproductive Disorders: No Pertinent History Other Medical History: polycystic ovarian disease, miscarriage x2, pre eclamplsia - Past Surgical History Past Surgical History: Yes Neuro Surgical History: No Pertinent History Cardiac: No Pertinent History Respiratory: No Pertinent History Gastrointestinal: No Pertinent History Genitourinary: No Pertinent History Musculoskeletal: No Pertinent History Female Surgical History: Dilation & Curettage, Section Other Surgical History: tonsil, fatty tumor on leg, ingrown toenail - Social History Smoking Status: Former smoker How long have you smoked: 6 months Exposure to second hand smoke: Yes Alcohol Use: None Drug Use: none Patient Lives Alone: No Significant Family History: no pertinent family hx - Female History Hx Last Menstrual Period: 3 weeks Hx Now: No - Nursing Vital Signs Nursing Vital Signs: Initial Vital Signs Temperature 98.3 F 07/05/21 20:30 Pulse Rate 108 H 07/05/21 20:30 Respiratory Rate 16 07/05/21 20:30 Blood Pressure 180/101 07/05/21 20:30 O2 Sat by Pulse Oximetry 98 07/05/21 20:30 Pain Scale Pain Intensity 6 - Physical Exam General Appearance: no apparent distress, alert Ears, Nose, Throat Exam: normal ENT inspection, pharynx normal Neck Exam: normal inspection, supple Respiratory Exam: normal breath sounds, lungs clear Cardiovascular Exam: regular rate/rhythm, normal heart sounds Extremity Exam: normal range of motion, pelvis stable Neurologic Exam: alert, oriented x 3, cooperative Skin Exam: rash (Left lateral leg area of erythema with central elevation/partially scabbed. Warm tender to touch. Firm consistency. Negative fluctuation.) SpO2 Interpretation: normal SpO2: 98 O2 Delivery: Room Air Ordered Tests: Medication Summary Discontinued Medications Generic Name Dose Route Start Last Admin Trade Name Deonna PRN Reason Stop Dose Admin Clindamycin Phosphate 600 mg 07/05/21 20:46 07/05/21 20:57 Clindamycin Phosphate 600 Mg/4 Ml Vial IM 07/05/21 20:47 600 mg ONCE STA Administration Clindamycin Phosphate Confirm 07/05/21 20:53 Clindamycin Phosphate 600 Mg/4 Ml Vial Administered 07/05/21 20:54 Dose 600 mg .ROUTE .STK-MED ONE - Progress Progress: unchanged Progress Note: 07/05/21 21:02 As cellulitis but no yessica abscess. Started on clindamycin. Recommended Tylenol/ibuprofen and outpatient follow-up. Discussed signs symptoms of worsening needing return to ER which she seems understanding. Counseled pt/family regarding: diagnosis, need for follow-up - Departure Departure Disposition: Home Clinical Impression: Cellulitis of leg, left Condition: Stable Critical Care Time: No Referrals: ALAYNA GODDARD MD [ACTIVE STAFF] - Follow up/PCP as directed (1-2 days for reevaluation) Instructions: MRSA (DC) Additional Instructions: Take Tylenol/ibuprofen as needed. Follow-up with primary care for reevaluation. Return to ER for increased swelling redness, discharge, fever chills etc. Prescriptions: clindamycin HCL [Clindamycin HCl] 300 mg PO QID 7 Days #28 cap
[2021-07-05 21:46] VITALS: BP 141/92; PULSE 93
[2021-07-06 06:24] VITALS: O2SAT 98
== END 2021-07-05 21:46 | disposition home or self-care (01) ==
LOC: ED 20:25
DX: L03.116 Cellulitis of left lower limb (principal); M79.662 Pain in left lower leg; E10.9 Type 1 diabetes mellitus without complications; Z79.4 Long term (current) use of insulin; Z79.899 Other long term (current) drug therapy
CPT/HCPCS: 96372; 99283

== ENCOUNTER 2021-07-08 12:00 | Emergency (ER) | payer OTHER ==
--- NOTE | 2021-07-08 12:04 | ERPHSYRPT ---
- History of Present Illness Time Seen by Provider: 07/08/21 12:04 Source: patient Exam Limitations: no limitations Physician History: This is a 30-year-old diabetic obese white female who was diagnosed with a left lateral lower leg area of cellulitis/abscess. She is placed on clindamycin 2 days ago. She was seen at another facility yesterday for wound check. she states improving but wanted recheck since she is diabetic Timing/Duration: day(s) (2) Quality: painful Severity: mild Location: extremities (left lower lateral leg) Possible Causes: other Associated Symptoms: denies symptoms Allergies/Adverse Reactions: NSAIDS (Non-Steroidal Anti-Inflamma Allergy (Severe, Verified 07/08/21 12:26) Anaphylactic Reaction Penicillins Allergy (Severe, Verified 07/08/21 12:26) Anaphylactic Reaction aspirin Allergy (Mild, Verified 07/08/21 12:26) Difficulty Breathing amoxicillin [Amoxicillin] Allergy (Unknown, Verified 07/08/21 12:26) Hives lisinopril Allergy (Unknown, Verified 07/08/21 12:26) morphine Allergy (Unknown, Verified 07/08/21 12:26) Home Medications: Amlodipine Besylate 10 mg PO DAILY 07/08/21 [History] Atorvastatin Calcium 40 mg PO HS 07/08/21 [History] Levothyroxine Sodium 50 Mcg [Synthroid 50 Mcg] 50 mcg PO DAILY 07/08/21 [History] Hx Tetanus, Diphtheria Vaccination/Date Given: No (2010) Hx Influenza Vaccination/Date Given: No Hx Pneumococcal Vaccination/Date Given: No Travel Risk - International Travel Have you traveled outside of the country in past 3 weeks: No - Coronavirus Screening Are you exhibiting any of the following symptoms?: No Close contact with a COVID-19 positive Pt in past 14-21 Days: No - Vaccine Status Have you recieved a Covid-19 vaccination: Yes 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[employer]: [employer] - Vaccination Dates Date of 2cond Vaccination (if applicable): july 2020 - Review of Systems Constitutional: No Symptoms Eyes: No Symptoms Ears, Nose, & Throat: No Symptoms Respiratory: No Symptoms Cardiac: No Symptoms Abdominal/Gastrointestinal: No Symptoms Genitourinary Symptoms: No Symptoms Musculoskeletal: No Symptoms Skin: Cellulitis, Other (no abcess) Neurological: No Symptoms Psychological: No Symptoms Endocrine: No Symptoms Hematologic/Lymphatic: No Symptoms Immunological/Allergic: No Symptoms All Other Systems: Reviewed and Negative - Past Medical History Pertinent Past Medical History: Yes Neurological History: No Pertinent History ENT History: No Pertinent History Cardiac History: No Pertinent History Respiratory History: Asthma Endocrine Medical History: No Pertinent History, Diabetes Type II Musculoskeletal History: No Pertinent History GI Medical History: No Pertinent History History: No Pertinent History Psycho-Social History: No Pertinent History Female Reproductive Disorders: No Pertinent History Other Medical History: polycystic ovarian disease, miscarriage x2, pre eclamplsia - Past Surgical History Past Surgical History: Yes Neuro Surgical History: No Pertinent History Cardiac: No Pertinent History Respiratory: No Pertinent History Gastrointestinal: No Pertinent History Genitourinary: No Pertinent History Musculoskeletal: No Pertinent History Female Surgical History: Dilation & Curettage, Section Other Surgical History: tonsil, fatty tumor on leg, ingrown toenail - Social History Smoking Status: Former smoker How long have you smoked: 6 months Exposure to second hand smoke: Yes Alcohol Use: None Drug Use: none Patient Lives Alone: No Significant Family History: no pertinent family hx - Nursing Vital Signs Nursing Vital Signs: Initial Vital Signs Temperature 97.7 F 07/08/21 12:14 Pulse Rate 94 H 07/08/21 12:14 Blood Pressure 156/111 07/08/21 12:14 O2 Sat by Pulse Oximetry 96 07/08/21 12:14 Pain Scale Pain Intensity 3 - Physical Exam General Appearance: no apparent distress, alert, anxiety Eye Exam: PERRL/EOMI, eyes nml inspection Ears, Nose, Throat Exam: normal ENT inspection, moist mucous membranes Neck Exam: normal inspection, non-tender, supple, full range of motion Respiratory Exam: normal breath sounds, lungs clear, airway intact, No chest tenderness, No respiratory distress Cardiovascular Exam: regular rate/rhythm, normal heart sounds, normal peripheral pulses Gastrointestinal/Abdomen Exam: No tenderness Pelvic Exam: not done Rectal Exam: not done Back Exam: normal inspection, normal range of motion, No CVA tenderness, No vertebral tenderness Extremity Exam: inflammation (induration, no abcess left lower lateral leg) Neurologic Exam: alert, oriented x 3, cooperative, 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, normal mood/affect, nml cerebellar function, nml station & gait, sensation nml Skin Exam: normal color Lymphatic Exam: No adenopathy SpO2 Interpretation: normal O2 Delivery: Room Air - Course Nursing assessment & vital signs reviewed: Yes Ordered Tests: Medication Summary Discontinued Medications Generic Name Dose Route Start Last Admin Trade Name Deonna PRN Reason Stop Dose Admin Levofloxacin 500 mg 07/08/21 12:25 07/08/21 12:32 Levofloxacin 250 Mg Tab PO 07/08/21 12:26 500 mg STAT ONE Administration Levofloxacin Confirm 07/08/21 12:30 Levofloxacin 500 Mg Tablet Administered 07/08/21 12:31 Dose 500 mg .ROUTE .[facility] ONE - Progress Progress Note: 07/08/21 13:00 There is no need to incise or drain this area today. There is no abscess present. There is mild, improving localized cellulitis with indurated tissue but no abscess. Counseled pt/family regarding: diagnosis, need for follow-up - Departure Departure Disposition: Home Clinical Impression: Cellulitis Condition: Stable Critical Care Time: No Referrals: GARLAND PATEL PA [Primary Care Provider] - Follow up/PCP as directed Additional Instructions: keep clean with soap and water daily. Warm compress to area 2-3 times a day but not directly on the skin. Continue your antibiotics as prescribed. Follow-up with your primary care physician for further evaluation and management of your area of infection.
[2021-07-08 12:25] VITALS: BP 156/111; PULSE 94; O2SAT 96
[2021-07-08] MEDS ORDERED: Levofloxacin 250MG Tablet PO ONE (12:25)
[2021-07-08] MEDS ORDERED: Levofloxacin 500 MG Tablet ONE (12:30)
== END 2021-07-08 13:07 | disposition home or self-care (01) ==
LOC: ED 12:00
DX: L03.116 Cellulitis of left lower limb (principal); E11.9 Type 2 diabetes mellitus without complications; Z79.899 Other long term (current) drug therapy
CPT/HCPCS: 99283; A9270-GY

== ENCOUNTER 2022-03-19 09:05 | Emergency (ER) | payer OTHER ==
[2022-03-19] MEDS ORDERED: Zofran 4 MG/2 ML VIAL IV ONE (09:43)
[2022-03-19] MEDS ORDERED: PROTONIX 40 MG IV IV ONE ×2 (09:43→09:47)
[2022-03-19] MEDS ORDERED: Sodium Chloride 0.9% 1000 ML 1,000 ML IV STA ×2 (09:43→10:11)
--- NOTE | 2022-03-19 09:43 | ERPHSYRPT ---
- History of Present Illness Time Seen by Provider: 03/19/22 09:30 Source: patient Exam Limitations: no limitations Patient Subjective Stated Complaint: Hyperglycemia Triage Nursing Assessment: Patient ambulated back to ED and transferred self to bed. Patient A+O x 3. Patient's skin pink, warm and dry. Patient is diabetic and wears a pump. Patient states her pump stopped working yesterday afternoon. Patient states her blood sugar highest reading was 375. Patient complains of N/V and abdominal pain 06/04. Physician History: This is a 31-year-old obese, diabetic white female patient who sees an teacher tutor for her diabetes issues and presents with not feeling well since yesterday. This morning, approximately 2:00 in the morning patient began having nausea and vomiting. She vomited several times between 2:00 in the morning and 4:00 in the morning. She also had associated right upper quadrant and epigastri c abdominal pain. Patient states that she has had a history of pancreatitis in the past. She also noticed that her blood sugar was 375 at home this morning. Patient's insulin pump often malfunctions and she states that she just turned her insulin pump off. Patient has a history of hypertension, hypothyroidism, asthma and polycystic ovary disease. She denies myalgias and arthralgias. She denies chest pain. She denies cough. She denies shortness of breath. She denies fever Timing/Duration: today Severity: mild (To moderate) Modifying Factors: Improves With: nothing Associated Symptoms: nausea, vomiting, abdominal pain, No shortness of breath, No cough, No chest pain, No fever Allergies/Adverse Reactions: NSAIDS (Non-Steroidal Anti-Inflamma Allergy (Severe, Verified 03/19/22 09:13) Anaphylactic Reaction Penicillins Allergy (Severe, Verified 03/19/22 09:13) Anaphylactic Reaction aspirin Allergy (Mild, Verified 03/19/22 09:13) Difficulty Breathing amoxicillin [Amoxicillin] Allergy (Unknown, Verified 03/19/22 09:13) Hives lisinopril Allergy (Unknown, Verified 03/19/22 09:13) morphine Allergy (Unknown, Verified 03/19/22 09:13) Home Medications: Amlodipine Besylate 10 mg PO DAILY 07/08/21 [History] Atorvastatin Calcium 40 mg PO HS 07/08/21 [History] Levothyroxine Sodium 50 Mcg [Synthroid 50 Mcg] 50 mcg PO DAILY 07/08/21 [History] Hx Tetanus, Diphtheria Vaccination/Date Given: No (2010) Hx Influenza Vaccination/Date Given: No Hx Pneumococcal Vaccination/Date Given: No Immunizations Up to Date: Yes Travel Risk - International Travel Have you traveled outside of the country in past 3 weeks: No - Coronavirus Screening Are you exhibiting any of the following symptoms?: No Close contact with a COVID-19 positive Pt in past 14-21 Days: No - Vaccine Status Have you recieved a Covid-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: [employer] - Vaccination Dates Date of 2cond Vaccination (if applicable): july 2020 - Review of Systems Constitutional: No Symptoms Eyes: No Symptoms Ears, Nose, & Throat: No Symptoms Respiratory: No Symptoms Cardiac: No Symptoms Abdominal/Gastrointestinal: Abdominal Pain, Nausea, Vomiting, No Diarrhea, No Constipation Genitourinary Symptoms: No Symptoms Musculoskeletal: No Symptoms, No Arthralgias, No Myalgias Skin: No Symptoms Neurological: No Symptoms Psychological: No Symptoms Endocrine: No Symptoms Hematologic/Lymphatic: No Symptoms Immunological/Allergic: No Symptoms All Other Systems: Reviewed and Negative - Past Medical History Pertinent Past Medical History: Yes Neurological History: No Pertinent History ENT History: No Pertinent History Cardiac History: No Pertinent History Respiratory History: Asthma Endocrine Medical History: No Pertinent History, Diabetes Type II Musculoskeletal History: No Pertinent History GI Medical History: No Pertinent History History: No Pertinent History Psycho-Social History: No Pertinent History Female Reproductive Disorders: No Pertinent History Other Medical History: polycystic ovarian disease, miscarriage x2, pre eclamplsia - Past Surgical History Past Surgical History: Yes Neuro Surgical History: No Pertinent History Cardiac: No Pertinent History Respiratory: No Pertinent History Gastrointestinal: No Pertinent History Genitourinary: No Pertinent History Musculoskeletal: No Pertinent History Female Surgical History: Dilation & Curettage, Section Other Surgical History: tonsil, fatty tumor on leg, ingrown toenail - Social History Smoking Status: Current every day smoker How long have you smoked: years Exposure to second hand smoke: Yes Alcohol Use: None Drug Use: none Patient Lives Alone: No Significant Family History: no pertinent family hx - Female History Hx Last Menstrual Period: last week Hx Now: No - Nursing Vital Signs Nursing Vital Signs: Initial Vital Signs Temperature 97.2 F 03/19/22 09:16 Pulse Rate 91 H 03/19/22 09:16 Respiratory Rate 18 03/19/22 09:16 Blood Pressure 150/106 03/19/22 09:16 O2 Sat by Pulse Oximetry 97 03/19/22 09:16 Pain Scale Pain Intensity 0 - Physical Exam General Appearance: no apparent distress, alert, anxiety, obese Eye Exam: PERRL/EOMI, eyes nml inspection Ears, Nose, Throat Exam: normal ENT inspection, moist mucous membranes Neck Exam: normal inspection, non-tender, supple, full range of motion Respiratory Exam: normal breath sounds, lungs clear, airway intact, No chest tenderness, No respiratory distress Cardiovascular Exam: regular rate/rhythm, normal heart sounds Gastrointestinal/Abdomen Exam: soft, normal bowel sounds, tenderness (Right upper quadrant and epigastric area), guarding (Right upper quadrant and epigastric area to palpation), No rebound Pelvic Exam: not done Rectal Exam: not done Extremity Exam: normal inspection, normal range of motion, pelvis stable Neurologic Exam: alert, oriented x 3, cooperative, 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, normal mood/affect, nml cerebellar function, nml station & gait, sensation nml Skin Exam: normal color, warm, dry Lymphatic Exam: No adenopathy SpO2 Interpretation: normal SpO2: 97 O2 Delivery: Room Air - Course Nursing assessment & vital signs reviewed: Yes Ordered Tests: Active Orders 24 hr Category Date Time Status IV Insertion STAT Care 03/19/22 09:43 Active POCT Glucose Check STAT Care 03/19/22 09:34 Active ABDOMEN AND PELVIS W/0 CONTRAS [CT] Stat Exams 03/19/22 10:31 Completed AMYLASE Stat Lab 03/19/22 09:43 Completed CBC W DIFF Stat Lab 03/19/22 09:43 Completed CMP Stat Lab 03/19/22 09:43 Completed HCG QUALITATIVE,SERUM Stat Lab 03/19/22 Completed LIPASE Stat Lab 03/19/22 09:43 Completed POCT GLUCOSE Stat Lab 03/19/22 09:29 Received POCT GLUCOSE Stat Lab 03/19/22 09:30 Completed POCT GLUCOSE Stat Lab 03/19/22 09:30 Received UA W/RFX CULTURE Stat Lab 03/19/22 09:46 Completed Medication Summary Generic Name Dose Route Start Last Admin Trade Name Freq PRN Reason Stop Dose Admin Sodium Chloride 1,000 mls @ 999 mls/hr 03/19/22 10:11 Sodium Chloride 0.9% 1000 Ml IV 03/19/22 11:11 .Q1H1M STA Discontinued Medications Generic Name Dose Route Start Last Admin Trade Name Deonna PRN Reason Stop Dose Admin Sodium Chloride 1,000 mls @ 999 mls/hr 03/19/22 09:43 03/19/22 09:48 Sodium Chloride 0.9% 1000 Ml IV 03/19/22 10:43 999 mls/hr .Q1H1M STA Administration Sodium Chloride Confirm 03/19/22 09:47 Sodium Chloride 0.9% 1000 Ml Administered 03/19/22 09:48 Dose 1,000 mls @ ud .ROUTE .[facility] ONE Sodium Chloride Confirm 03/19/22 10:18 Sodium Chloride 0.9% 1000 Ml Administered 03/19/22 10:19 Dose 1,000 mls @ ud .ROUTE .[facility] ONE Ondansetron HCl 4 mg 03/19/22 09:43 03/19/22 09:49 Ondansetron Hcl 4 Mg/2 Ml Vial IV 03/19/22 09:44 4 mg STAT ONE Administration Ondansetron HCl Confirm 03/19/22 09:47 Ondansetron Hcl 4 Mg/2 Ml Vial Administered 03/19/22 09:48 Dose 4 mg .ROUTE .[facility] ONE Pantoprazole Sodium 40 mg 03/19/22 09:43 03/19/22 09:48 Pantoprazole 40 Mg Vial IV 03/19/22 09:44 40 mg STAT ONE Administration Pantoprazole Sodium Confirm 03/19/22 09:47 Pantoprazole 40 Mg Vial Administered 03/19/22 09:48 Dose 40 mg IV .STK-[facility] ONE Lab/Rad Data: Laboratory Result Diagrams 03/19/22 09:43 03/19/22 09:43 Laboratory Results 03/19/22 03/19/22 03/19/22 Range/Units Unknown 09:46 09:43 WBC (4.0-10.5) x10^3/uL RBC (4.1-5.4) x10^6/uL Hgb (12.0-16.0) g/dL Hct (35-47) % MCV (78-100) fL MCH (26-32) pg MCHC (32-36) g/dL RDW (11.5-14.0) % Plt Count (150-450) x10^3/uL MPV (7.5-11.0) fL Gran % (36.0-66.0) % Immature Gran % (Auto) (0.00-0.4) % Nucleat RBC Rel Count (0.00-0.1) % Eos # (Auto) (0-0.5) x10^3/uL Immature Gran # (Auto) (0.00-0.03) x10^3u/L Absolute Lymphs (auto) (1.0-4.6) x10^3/uL Absolute Monos (auto) (0.0-1.3) x10^3/uL Absolute Nucleated RBC (0.00-0.01) x10^3u/L Lymphocytes % (24.0-44.0) % Monocytes % (0.0-12.0) % Eosinophils % (0.00-5.0) % Basophils % (0.0-0.4) % Absolute Granulocytes (1.4-6.9) x10^3/uL Basophils # (0-0.4) x10^3/uL Sodium 129 L (137-145) mmol/L Potassium 5.9 H (3.5-5.1) mmol/L Chloride 102 (98-107) mmol/L Carbon Dioxide 16 L* (22-30) mmol/L Anion Gap 16.1 H (5-15) MEQ/L BUN 13 (7-17) mg/dL Creatinine 0.47 L (0.52-1.04) mg/dL Estimated GFR > 60.0 ML/MIN Glucose 314 H (74-106) mg/dL POC Glucometer (74 to 106) mg/dL Calcium 8.6 (8.4-10.2) mg/dL Total Bilirubin 1.50 H (0.2-1.3) mg/dL AST 57 H (14-36) U/L ALT 38 H (0-35) U/L Alkaline Phosphatase 80 (38-126) U/L Serum Total Protein 8.1 (6.3-8.2) g/dL Albumin 4.2 (3.5-5.0) g/dL Amylase 52 (30-110) U/L Lipase 91 (23-300) U/L Serum , Qual NEGATIVE (Negative) Urinalys Dipstick Clnc MAIN LAB Urine Color YELLOW (YELLOW) Urine Appearance CLEAR (CLEAR) Urine pH 5.5 (5-6) Ur Specific [place] 1.020 (1.005-1.025) POC Urine Protein Conf NEGATIVE (Negative) Urine Ketones SMALL-15 A (NEGATIVE) Urine Nitrite NEGATIVE (NEGATIVE) Urine Bilirubin NEGATIVE (NEGATIVE) Urine Urobilinogen 0.2 (0-1) mg/dL Urine Leukocytes NEGATIVE (NEGATIVE) Urine WBC (Auto) 0-2 (0-5) /HPF Urine RBC (Auto) NONE (0-2) /HPF U Epithel Cells (Auto) RARE (FEW) /HPF Urine Bacteria (Auto) RARE (NEGATIVE) /HPF Urine RBC NEGATIVE (0-5) Dave/ul Ur Culture Indicated? NO Urine Glucose >=1000 A (NEGATIVE) mg/dL 03/19/22 03/19/22 Range/Units 09:43 09:30 WBC 11.2 H (4.0-10.5) x10^3/uL RBC 4.72 (4.1-5.4) x10^6/uL Hgb 15.9 (12.0-16.0) g/dL Hct 41.9 (35-47) % MCV 88.8 (78-100) fL MCH 33.7 H (26-32) pg MCHC 37.9 H (32-36) g/dL RDW 12.0 (11.5-14.0) % Plt Count 306 (150-450) x10^3/uL MPV 10.0 (7.5-11.0) fL Gran % 76.0 H (36.0-66.0) % Immature Gran % (Auto) 0.3 (0.00-0.4) % Nucleat RBC Rel Count 0.0 (0.00-0.1) % Eos # (Auto) 0.12 (0-0.5) x10^3/uL Immature Gran # (Auto) 0.03 (0.00-0.03) x10^3u/L Absolute Lymphs (auto) 1.98 (1.0-4.6) x10^3/uL Absolute Monos (auto) 0.49 (0.0-1.3) x10^3/uL Absolute Nucleated RBC 0.00 (0.00-0.01) x10^3u/L Lymphocytes % 17.7 L (24.0-44.0) % Monocytes % 4.4 (0.0-12.0) % Eosinophils % 1.1 (0.00-5.0) % Basophils % 0.5 (0.0-0.4) % Absolute Granulocytes 8.48 H (1.4-6.9) x10^3/uL Basophils # 0.06 (0-0.4) x10^3/uL Sodium (137-145) mmol/L Potassium (3.5-5.1) mmol/L Chloride (98-107) mmol/L Carbon Dioxide (22-30) mmol/L Anion Gap (5-15) MEQ/L BUN (7-17) mg/dL Creatinine (0.52-1.04) mg/dL Estimated GFR ML/MIN Glucose (74-106) mg/dL POC Glucometer 306 H (74 to 106) mg/dL Calcium (8.4-10.2) mg/dL Total Bilirubin (0.2-1.3) mg/dL AST (14-36) U/L ALT (0-35) U/L Alkaline Phosphatase (38-126) U/L Serum Total Protein (6.3-8.2) g/dL Albumin (3.5-5.0) g/dL Amylase (30-110) U/L Lipase (23-300) U/L Serum , Qual (Negative) Urinalys Dipstick Clnc Urine Color (YELLOW) Urine Appearance (CLEAR) Urine pH (5-6) Ur Specific [place] (1.005-1.025) POC Urine Protein Conf (Negative) Urine Ketones (NEGATIVE) Urine Nitrite (NEGATIVE) Urine Bilirubin (NEGATIVE) Urine Urobilinogen (0-1) mg/dL Urine Leukocytes (NEGATIVE) Urine WBC (Auto) (0-5) /HPF Urine RBC (Auto) (0-2) /HPF U Epithel Cells (Auto) (FEW) /HPF Urine Bacteria (Auto) (NEGATIVE) /HPF Urine RBC (0-5) Dave/ul Ur Culture Indicated? Urine Glucose (NEGATIVE) mg/dL - Progress Progress: improved Progress Note: 03/19/22 10:49 CAT scan of the abdomen pelvis without contrast shows mild fecal stasis. No other acute intra-abdominal or intrapelvic findings. Counseled pt/family regarding: lab results, diagnosis, need for follow-up, rad results - Departure Departure Disposition: Home Clinical Impression: Hyperglycemia due to diabetes mellitus, Vomiting Condition: Stable Critical Care Time: No Referrals: GARLAND PATEL PA [Primary Care Provider] - Follow up/PCP as directed Additional Instructions: Drink plenty of fluids. Monitor your blood sugar closely. Call your teacher tutor today for instructions regarding controlling your blood sugar levels and if indicated, fill any prescriptions needed. Prescriptions: Ondansetron ODT 4 MG [Zofran Odt 4 mg] 4 mg PO Q6H PRN PRN #10 tablet PRN Reason: Vomiting
[2022-03-19] MEDS ORDERED: Sodium Chloride 0.9% 1000 ML 1,000 ML ONE ×2 (09:47→10:18)
[2022-03-19] MEDS ORDERED: Zofran 4 MG/2 ML VIAL ONE (09:47)
[2022-03-19 09:48] LABS: Absolute Neutrophil Ct (ANC) 8.48 x10^3/uL (1.4-6.9); Basophil (Absolute #) 0.06 x10^3/uL (0-0.4); Eosinophil % 1.1 % (0.00-5.0); Eosinophil (Absolute #) 0.12 x10^3/uL (0-0.5); Hematocrit 41.9 % (35-47); Hemoglobin 15.9 g/dL (12.0-16.0); Lymphocyte (Absolute #) 1.98 x10^3/uL (1.0-4.6); Lymphocytes % 17.7 % (24.0-44.0); Mean Cell Volume 88.8 fL (78-100); Mean Corpuscular Hemoglobin 33.7 pg (26-32); Mean Corpuscular Hgb Concent. 37.9 g/dL (32-36); Monocyte (Absolute #) 0.49 x10^3/uL (0.0-1.3); Monocytes % 4.4 % (0.0-12.0); Platelet Count 306 x10^3/uL (150-450); Red Blood Count 4.72 x10^6/uL (4.1-5.4); White Blood Count 11.2 x10^3/uL (4.0-10.5)
[2022-03-19 09:59] LABS: Bacteria RARE /HPF (NEGATIVE); Epithelial Cells RARE /HPF (FEW); WBC 0-2 /HPF (0-5)
[2022-03-19 10:00] LABS: Appearance CLEAR (CLEAR); Bilirubin NEGATIVE (NEGATIVE); Dipstick done @ ? MAIN LAB; Glucose >=1000 mg/dL (NEGATIVE); Ketones SMALL-15 (NEGATIVE); Nitrite NEGATIVE (NEGATIVE); Ph 5.5 (5-6); Protein,Urine Dip NEGATIVE (Negative); RBC NEGATIVE Ery/ul (0-5); Urobilinogen 0.2 mg/dL (0-1)
[2022-03-19 10:01] LABS: Urine Cultured Indicated? NO
[2022-03-19 10:01] LABS: ALBUMIN 4.2 g/dL (3.5-5.0); ALKALINE PHOSPHATASE 80 U/L (38-126); AMYLASE 52 U/L (30-110); ANION GAP 16.1 MEQ/L (5-15); BLOOD UREA NITROGEN 13 mg/dL (7-17); CHLORIDE 102 mmol/L (98-107); Calcium 8.6 mg/dL (8.4-10.2); Creatinine 1 0.47 mg/dL (0.52-1.04); EST GLOMERULAR FILTRATION RATE > 60.0 ML/MIN; Glucose 314 mg/dL (74-106); LIPASE 91 U/L (23-300); SGOT/AST 57 U/L (14-36); SGPT/ALT 38 U/L (0-35); SODIUM 129 mmol/L (137-145); Total Protein 8.1 g/dL (6.3-8.2)
[2022-03-19 10:04] LABS: Carbon Dioxide 16 mmol/L (22-30)
[2022-03-19 10:05] LABS: Potassium 5.9 mmol/L (3.5-5.1)
--- NOTE | 2022-03-19 10:44 | XRAY ---
Indication: Right upper quadrant pain. History pancreatitis. Multiple contiguous axial images obtained through the abdomen and pelvis without contrast. Comparison: March 14, 2018 Lung bases remain clear. Heart not enlarged. Noncontrasted stomach and bowel loops nonobstructed again with normal appendix. Again mild diffuse scatter colonic fecal debris throughout. No free fluid/air. Again fatty liver measuring 25.6 cm and splenomegaly measuring 14.4 cm. Remaining liver, gallbladder, pancreas, spleen, adrenal glands, kidneys, ureters, bladder, uterus, and aorta are unremarkable for noncontrast exam. Osseous structures intact again with tiny/small multilevel thoracolumbar small nodes and incidental L4 limbus vertebrae. No ventral or inguinal hernias. Impression: 1. Again mild diffuse fecal stasis, fatty hepatomegaly, splenomegaly, and chronic bony findings. 2. Remaining CT abdomen/pelvis without contrast exam is again negative.
[2022-03-19 12:00] LABS: ANION GAP 12.3 MEQ/L (5-15); BLOOD UREA NITROGEN 11 mg/dL (7-17); CHLORIDE 106 mmol/L (98-107); Calcium 7.8 mg/dL (8.4-10.2); Carbon Dioxide 18 mmol/L (22-30); Creatinine 1 0.36 mg/dL (0.52-1.04); EST GLOMERULAR FILTRATION RATE > 60.0 ML/MIN; Glucose 253 mg/dL (74-106); Potassium 4.2 mmol/L (3.5-5.1); SODIUM 132 mmol/L (137-145)
[2022-03-19 12:20] VITALS: BP 144/98; PULSE 68; O2SAT 98
== END 2022-03-19 12:19 | disposition home or self-care (01) ==
LOC: ED 09:05
DX: E11.65 Type 2 diabetes mellitus with hyperglycemia (principal); R11.2 Nausea with vomiting, unspecified; R10.11 Right upper quadrant pain; R10.13 Epigastric pain; I10 Essential (primary) hypertension; Z79.4 Long term (current) use of insulin; Z96.41 Presence of insulin pump (external) (internal); Z79.899 Other long term (current) drug therapy; Z72.0 Tobacco use
CPT/HCPCS: 36000; 36415; 74176; 80048; 80053; 81015; 82150; 82947; 83690; 84703; 85025; 96360; 96361; 96374; 96375; 99284; J2405

== ENCOUNTER 2022-11-16 23:29 | Emergency (ER) | payer OTHER ==
[2022-11-16] MEDS ORDERED: Hydromorphone 1 mg/ml Injection IV ONE (23:50)
[2022-11-16] MEDS ORDERED: Zofran 4 MG/2 ML VIAL IV ONE (23:50)
[2022-11-16] MEDS ORDERED: Sodium Chloride 0.9% 1000 ML 1,000 ML IV STA (23:50)
--- NOTE | 2022-11-16 23:55 | ERPHSYRPT ---
- History of Present Illness Time Seen by Provider: 11/16/22 23:39 Historian: patient Exam Limitations: no limitations Physician History: 31-year-old female with a history of type 1 diabetes mellitus, hypertension, recurrent pancreatitis presented to the ER with chief complaint of upper abdominal pain with nausea vomiting and diarrhea for the last 2 days with progressive worsening. Patient reports multiple episodes of nonprojectile, nonbilious vomiting without hematemesis. Last vomiting was almost 12 hours ago but patient feels severely nauseous and is not able to hold much down. Also reports having multiple episodes of loose watery stool without hematochezia. No fever or chills reported. Denies any known sick contact. Patient reports her blood sugar is in 300s and usually gets in 170s. Allergies/Adverse Reactions: aspirin Allergy (Severe, Verified 11/16/22 23:55) Difficulty Breathing NSAIDS (Non-Steroidal Anti-Inflamma Allergy (Severe, Verified 11/16/22 23:49) Anaphylactic Reaction Penicillins Allergy (Severe, Verified 11/16/22 23:49) Anaphylactic Reaction vancomycin Allergy (Severe, Verified 11/16/22 23:49) red man syndrome amoxicillin [Amoxicillin] Allergy (Unknown, Verified 11/16/22 23:49) Hives lisinopril Allergy (Unknown, Verified 11/16/22 23:49) Itching morphine Allergy (Unknown, Verified 11/16/22 23:49) get mean Home Medications: Amlodipine Besylate 10 mg PO DAILY 07/08/21 [History] Atorvastatin Calcium 40 mg PO HS 07/08/21 [History] Levothyroxine Sodium 50 Mcg [Synthroid 50 Mcg] 50 mcg PO DAILY 07/08/21 [History] Hx Tetanus, Diphtheria Vaccination/Date Given: No (2010) Hx Influenza Vaccination/Date Given: No Hx Pneumococcal Vaccination/Date Given: No Travel Risk - Vaccine Status Have you recieved a Covid-19 vaccination: Yes [employer]: [employer] - Vaccination Dates Date of 2cond Vaccination (if applicable): july 2020 - Review of Systems Constitutional: Fatigue, Weakness Eyes: No Symptoms Ears, Nose, & Throat: No Symptoms Respiratory: No Symptoms Cardiac: No Symptoms Abdominal/Gastrointestinal: Abdominal Pain, Nausea, Vomiting, Diarrhea Genitourinary Symptoms: No Symptoms Musculoskeletal: No Symptoms Neurological: No Symptoms Psychological: No Symptoms Endocrine: No Symptoms Hematologic/Lymphatic: No Symptoms Immunological/Allergic: No Symptoms - Past Medical History Pertinent Past Medical History: Yes Neurological History: No Pertinent History ENT History: No Pertinent History Cardiac History: No Pertinent History Respiratory History: Asthma Endocrine Medical History: No Pertinent History, Diabetes Type II Musculoskeletal History: No Pertinent History GI Medical History: No Pertinent History History: No Pertinent History Psycho-Social History: No Pertinent History Female Reproductive Disorders: No Pertinent History Other Medical History: polycystic ovarian disease, miscarriage x2, pre eclamplsia - Past Surgical History Past Surgical History: Yes Neuro Surgical History: No Pertinent History Cardiac: No Pertinent History Respiratory: No Pertinent History Gastrointestinal: No Pertinent History Genitourinary: No Pertinent History Musculoskeletal: No Pertinent History Female Surgical History: Dilation & Curettage, Section Other Surgical History: tonsil, fatty tumor on leg, ingrown toenail - Social History Smoking Status: Current every day smoker How long have you smoked: years Exposure to second hand smoke: Yes Alcohol Use: None Drug Use: none Patient Lives Alone: No Significant Family History: no pertinent family hx - Nursing Vital Signs Nursing Vital Signs: Initial Vital Signs Temperature 98.3 F 11/16/22 23:37 Pulse Rate 105 H 11/16/22 23:37 Respiratory Rate 18 11/16/22 23:37 Blood Pressure 180/105 11/16/22 23:37 O2 Sat by Pulse Oximetry 97 11/16/22 23:37 Pain Scale Pain Intensity 7 - Physical Exam General Appearance: no apparent distress, alert Eye Exam: PERRL/EOMI Ears, Nose, Throat Exam: normal ENT inspection Neck Exam: normal inspection, non-tender, supple, full range of motion Respiratory Exam: normal breath sounds, lungs clear Cardiovascular Exam: regular rate/rhythm, normal heart sounds Gastrointestinal/Abdomen Exam: soft, normal bowel sounds, tenderness (Upper abdomen), No guarding, No rebound Extremity Exam: normal inspection, normal range of motion Neurologic Exam: alert, oriented x 3, cooperative Skin Exam: normal color SpO2 Interpretation: normal SpO2: 96 O2 Delivery: Room Air Ordered Tests: Active Orders 24 hr Category Date Time Status IV Insertion STAT Care 11/16/22 23:50 Active NPO (ED) STAT Care 11/16/22 23:50 Active ABDOMEN AND PELVIS W CONTRAST [CT] Stat Exams 11/16/22 23:51 Completed CBC W DIFF Stat Lab 11/16/22 23:45 Completed CMP Stat Lab 11/16/22 23:45 Completed HCG QUALITATIVE, URINE Stat Lab 11/16/22 23:45 Completed LIPASE Stat Lab 11/16/22 23:45 Completed Lactic Acid Stat Lab 11/16/22 23:54 Completed UA W/RFX UR CULTURE Stat Lab 11/16/22 23:45 Completed VENOUS BLOOD GAS Stat Lab 11/16/22 23:52 Completed Medication Summary Discontinued Medications Generic Name Dose Route Start Last Admin Trade Name Deonna PRN Reason Stop Dose Admin Hydromorphone HCl 0.5 mg 11/16/22 23:50 11/17/22 00:02 Hydromorphone 1 Mg/1ml Inj IV 11/16/22 23:51 0.5 mg STAT ONE Administration Hydromorphone HCl Confirm 11/16/22 23:58 Hydromorphone 1 Mg/1ml Inj Administered 11/16/22 23:59 Dose 1 mg .ROUTE .STK-MED ONE Hydromorphone HCl Confirm 11/17/22 02:12 Hydromorphone 1 Mg/1ml Inj Administered 11/17/22 02:13 Dose 1 mg .ROUTE .STK-MED ONE Sodium Chloride 1,000 mls @ 999 mls/hr 11/16/22 23:50 11/17/22 00:03 Sodium Chloride 0.9% 1000 Ml IV 11/17/22 00:50 999 mls/hr .Q1H1M STA Administration Sodium Chloride Confirm 11/16/22 23:58 Sodium Chloride 0.9% 1000 Ml Administered 11/16/22 23:59 Dose 1,000 mls @ ud .ROUTE .STK-MED ONE Ondansetron HCl 4 mg 11/16/22 23:50 11/17/22 00:02 Ondansetron Hcl 4 Mg/2 Ml Vial IV 11/16/22 23:51 4 mg STAT ONE Administration Ondansetron HCl Confirm 11/16/22 23:58 Ondansetron Hcl 4 Mg/2 Ml Vial Administered 11/16/22 23:59 Dose 4 mg .ROUTE .STK-MED ONE Lab/Rad Data: Laboratory Result Diagrams 11/16/22 23:45 11/16/22 23:45 Laboratory Results 08/22/23 08/22/23 08/22/23 Range/Units 23:54 23:52 23:45 WBC (4.0-10.5) x10^3/uL RBC (4.1-5.4) x10^6/uL Hgb (12.0-16.0) g/dL Hct (35-47) % MCV (78-100) fL MCH (26-32) pg MCHC (32-36) g/dL RDW (11.5-14.0) % Plt Count (150-450) x10^3/uL MPV (7.5-11.0) fL Gran % (36.0-66.0) % Immature Gran % (Auto) (0.00-0.4) % Nucleat RBC Rel Count (0.00-0.1) % Eos # (Auto) (0-0.5) x10^3/uL Immature Gran # (Auto) (0.00-0.03) x10^3u/L Absolute Lymphs (auto) (1.0-4.6) x10^3/uL Absolute Monos (auto) (0.0-1.3) x10^3/uL Absolute Nucleated RBC (0.00-0.01) x10^3u/L Lymphocytes % (24.0-44.0) % Monocytes % (0.0-12.0) % Eosinophils % (0.00-5.0) % Basophils % (0.0-0.4) % Absolute Granulocytes (1.4-6.9) x10^3/uL Basophils # (0-0.4) x10^3/uL pO2/FiO2 Ratio 21.0 % VBG pH 7.38 (7.32-7.42) VBG pCO2 at Pat Temp 39 L (42-55) mm/Hg VBG pO2 at Pat Temp 55 H (25-40) mm/Hg VBG HCO3 23.1 (22-28) meq/L VBG O2 Sat (Mile) 83.3 L (95-100) VBG Base Excess -1.8 (-2.0-2.0) VBG Hemoglobin 14.5 VBG Carboxyhemoglobin 2.6 (0.0-6.9) % T HGB POC Potassium 4.0 (3.5-5.1) Sodium (137-145) mmol/L Potassium (3.5-5.1) mmol/L Chloride (98-107) mmol/L Carbon Dioxide (22-30) mmol/L Anion Gap (5-15) MEQ/L BUN (7-17) mg/dL Creatinine (0.52-1.04) mg/dL Estimated GFR ML/MIN Glucose (74-106) mg/dL Lactic Acid 1.9 (0.4-2.0) Calcium (8.4-10.2) mg/dL Total Bilirubin (0.2-1.3) mg/dL AST (14-36) U/L ALT (0-35) U/L Alkaline Phosphatase (38-126) U/L Serum Total Protein (6.3-8.2) g/dL Albumin (3.5-5.0) g/dL Lipase (23-300) U/L Urine Color (Yellow) Urine Appearance (Clear) Urine pH (4.6-8.0) Ur Specific [place] (1.005-1.030) Urine Protein (Negative) Urine Glucose (UA) (Negative) mg/dL Urine Ketones (Negative) Urine Blood (Negative) Urine Nitrite (Negative) Urine Bilirubin (Negative) Urine Urobilinogen (0.2) mg/dL Ur Leukocyte Esterase (Negative) U Hyaline Cast (Auto) (0-2) /LPF Urine Microscopic RBC (0-5) /HPF Urine Microscopic WBC (0-5) /HPF Ur Epithelial Cells (None Seen) /HPF Urine Bacteria (None Seen) /HPF Urine Culture Reflexed (NO) Urine HCG, Qual NEGATIVE (NEGATIVE) 11/16/22 11/16/22 11/16/22 Range/Units 23:45 23:45 23:45 WBC 8.5 (4.0-10.5) x10^3/uL RBC 4.64 (4.1-5.4) x10^6/uL Hgb 13.9 (12.0-16.0) g/dL Hct 40.3 (35-47) % MCV 86.9 (78-100) fL MCH 30.0 (26-32) pg MCHC 34.5 (32-36) g/dL RDW 12.7 (11.5-14.0) % Plt Count 288 (150-450) x10^3/uL MPV 9.5 (7.5-11.0) fL Gran % 54.6 (36.0-66.0) % Immature Gran % (Auto) 0.2 (0.00-0.4) % Nucleat RBC Rel Count 0.0 (0.00-0.1) % Eos # (Auto) 0.18 (0-0.5) x10^3/uL Immature Gran # (Auto) 0.02 (0.00-0.03) x10^3u/L Absolute Lymphs (auto) 2.88 (1.0-4.6) x10^3/uL Absolute Monos (auto) 0.71 (0.0-1.3) x10^3/uL Absolute Nucleated RBC 0.00 (0.00-0.01) x10^3u/L Lymphocytes % 34.1 (24.0-44.0) % Monocytes % 8.4 (0.0-12.0) % Eosinophils % 2.1 (0.00-5.0) % Basophils % 0.6 (0.0-0.4) % Absolute Granulocytes 4.61 (1.4-6.9) x10^3/uL Basophils # 0.05 (0-0.4) x10^3/uL pO2/FiO2 Ratio % VBG pH (7.32-7.42) VBG pCO2 at Pat Temp (42-55) mm/Hg VBG pO2 at Pat Temp (25-40) mm/Hg VBG HCO3 (22-28) meq/L VBG O2 Sat (Mile) (95-100) VBG Base Excess (-2.0-2.0) VBG Hemoglobin VBG Carboxyhemoglobin (0.0-6.9) % T HGB POC Potassium (3.5-5.1) Sodium 135 L (137-145) mmol/L Potassium 3.9 (3.5-5.1) mmol/L Chloride 100 (98-107) mmol/L Carbon Dioxide 20 L (22-30) mmol/L Anion Gap 18.5 H (5-15) MEQ/L BUN 16 (7-17) mg/dL Creatinine 0.68 (0.52-1.04) mg/dL Estimated GFR > 60.0 ML/MIN Glucose 339 H (74-106) mg/dL Lactic Acid (0.4-2.0) Calcium 9.0 (8.4-10.2) mg/dL Total Bilirubin 0.50 (0.2-1.3) mg/dL AST 25 (14-36) U/L ALT 31 (0-35) U/L Alkaline Phosphatase 59 (38-126) U/L Serum Total Protein 7.4 (6.3-8.2) g/dL Albumin 4.2 (3.5-5.0) g/dL Lipase 86 (23-300) U/L Urine Color Yellow (Yellow) Urine Appearance Clear (Clear) Urine pH 6.5 (4.6-8.0) Ur Specific [place] 1.015 (1.005-1.030) Urine Protein Negative (Negative) Urine Glucose (UA) >=1000 A (Negative) mg/dL Urine Ketones Negative (Negative) Urine Blood Negative (Negative) Urine Nitrite Negative (Negative) Urine Bilirubin Negative (Negative) Urine Urobilinogen 0.2 (0.2) mg/dL Ur Leukocyte Esterase Negative (Negative) U Hyaline Cast (Auto) NONE SEEN (0-2) /LPF Urine Microscopic RBC 0-2 (0-5) /HPF Urine Microscopic WBC 0-2 (0-5) /HPF Ur Epithelial Cells None Seen (None Seen) /HPF Urine Bacteria None Seen (None Seen) /HPF Urine Culture Reflexed NO (NO) Urine HCG, Qual (NEGATIVE) - Progress Progress: improved, re-examined Progress Note: 11/16/22 23:54 31-year-old female with a history of type 1 diabetes mellitus, hypertension, recurrent pancreatitis presented to the ER with chief complaint of upper abdominal pain with nausea vomiting and diarrhea for the last 2 days with progressive worsening. Patient reports multiple episodes of nonprojectile, nonbilious vomiting without hematemesis. Last vomiting was almost 12 hours ago but patient feels severely nauseous and is not able to hold much down. Also reports having multiple episodes of loose watery stool without hematochezia. No fever or chills reported. Denies any known sick contact. Patient reports her blood sugar is in 300s and usually gets in 170s. Patient has tenderness in upper abdomen with palpation but no guarding or rebound tenderness. Bowel sounds positive. We will do acute abdomen work including CT abdomen pelvis. Patient will be also worked up for DKA. She is given fluids and symptomatic treatment for pain. 11/17/22 03:07 She is given symptomatic treatment for pain along with fluids. On reevaluation feeling much better. Work-up showed normal white count, unremarkable chemistries. Normal lipase and liver enzymes. No UTI. Patient is not in DKA although blood sugar in 300s. Not HHS. CT abdomen pelvis with contrast is negative for any acute intra-abdominal pelvic findings. I believe patient has viral gastroenteritis with some element of acid peptic disease. I would give her Zofran and Protonix to go home, recommended Tylenol to take as needed. Increase hydration and outpatient follow-up recommended. Discussed signs symptoms of worsening needing return to ER which she seems understanding. Stable for discharge. 11/17/22 03:14 Counseled pt/family regarding: lab results, diagnosis, need for follow-up, rad results Medical Desision Making - Diagnostic Testing Diagnostic test were ordered, analyzed, and reviewed by me: Yes Radiological Interpretation: Reviewed by me - Risk of complications The pt has a mod risk of morbidity or mortality based on: Need for prescription drug management - Departure Departure Disposition: Home Clinical Impression: Upper abdominal pain, Gastroenteritis Condition: Stable Critical Care Time: No Referrals: GARLAND PATEL PA [Primary Care Provider] - Follow up/PCP as directed (1-2 days for reevaluation) Instructions: Severe Abdominal Pain, Adult (DC) Additional Instructions: Drink plenty of fluids to keep yourself well-hydrated. Take Tylenol/Zofran as needed. Follow-up with primary care for reevaluation. Return to ER for intractable abdominal pain/vomiting/diarrhea/fever chills etc. Prescriptions: PANTOPRAZOLE 40 mg Tablet [Protonix 40MG Tablet] 40 mg PO QAM #30 tab Ondansetron ODT 4 MG [Zofran Odt 4 mg] 1 ea PO QIDPRN PRN #7 tablet PRN Reason: n/v
[2022-11-16 23:56] VITALS: TEMP 98.3
[2022-11-16 23:56] LABS: Absolute Neutrophil Ct (ANC) 4.61 x10^3/uL (1.4-6.9); BASOPHIL % 0.6 % (0.0-0.4); Basophil (Absolute #) 0.05 x10^3/uL (0-0.4); Eosinophil % 2.1 % (0.00-5.0); Eosinophil (Absolute #) 0.18 x10^3/uL (0-0.5); Hematocrit 40.3 % (35-47); Hemoglobin 13.9 g/dL (12.0-16.0); IMMATURE GRAN # 0.02 x10^3u/L (0.00-0.03); IMMATURE GRAN % 0.2 % (0.00-0.4); Lymphocyte (Absolute #) 2.88 x10^3/uL (1.0-4.6); Lymphocytes % 34.1 % (24.0-44.0); Mean Cell Volume 86.9 fL (78-100); Mean Corpuscular Hgb Concent. 34.5 g/dL (32-36); Mean Platelet Volume 9.5 fL (7.5-11.0); Monocyte (Absolute #) 0.71 x10^3/uL (0.0-1.3); Monocytes % 8.4 % (0.0-12.0); Neutrophil % 54.6 % (36.0-66.0); Platelet Count 288 x10^3/uL (150-450); Red Blood Count 4.64 x10^6/uL (4.1-5.4); Red Cell Distribution Width 12.7 % (11.5-14.0); White Blood Count 8.5 x10^3/uL (4.0-10.5)
[2022-11-16 23:57] LABS: VBG BASE EXCESS -1.8 (-2.0-2.0); VBG CARBOXYHEMOGLOBIN 2.6 % T HGB (0.0-6.9); VBG HCO3- 23.1 meq/L (22-28); VBG HEMOGLOBIN 14.5; VBG O2 SATURATION 83.3 (95-100); VBG pH 7.38 (7.32-7.42)
[2022-11-16] MEDS ORDERED: Hydromorphone 1 mg/ml Injection ONE (23:58)
[2022-11-16] MEDS ORDERED: Sodium Chloride 0.9% 1000 ML 1,000 ML ONE (23:58)
[2022-11-16] MEDS ORDERED: Zofran 4 MG/2 ML VIAL ONE (23:58)
[2022-11-16 23:59] LABS: HCG URINE TEST NEGATIVE (NEGATIVE)
[2022-11-17 00:12] LABS: ALBUMIN 4.2 g/dL (3.5-5.0); ALKALINE PHOSPHATASE 59 U/L (38-126); ANION GAP 18.5 MEQ/L (5-15); BLOOD UREA NITROGEN 16 mg/dL (7-17); CHLORIDE 100 mmol/L (98-107); Carbon Dioxide 20 mmol/L (22-30); Creatinine 1 0.68 mg/dL (0.52-1.04); EST GLOMERULAR FILTRATION RATE > 60.0 ML/MIN; Glucose 339 mg/dL (74-106); LIPASE 86 U/L (23-300); Potassium 3.9 mmol/L (3.5-5.1); SGOT/AST 25 U/L (14-36); SGPT/ALT 31 U/L (0-35); SODIUM 135 mmol/L (137-145); Total Protein 7.4 g/dL (6.3-8.2)
[2022-11-17 00:18] LABS: Appearance Clear (Clear); Bacteria None Seen /HPF (None Seen); Bilirubin Negative (Negative); Blood Negative (Negative); Epithelial Cells None Seen /HPF (None Seen); Glucose, Urine >=1000 mg/dL (Negative); Hyaline Casts NONE SEEN /LPF (0-2); Ketones Negative (Negative); Leukocyte Esterase Negative (Negative); Nitrite Negative (Negative); Ph 6.5 (4.6-8.0); Protein,Urine Dip Negative (Negative); RBC 0-2 /HPF (0-5); Specific Gravity 1.015 (1.005-1.030); Urobilinogen 0.2 mg/dL (0.2); WBC 0-2 /HPF (0-5)
[2022-11-17 00:19] LABS: ADD URINE CULTURE? NO (NO)
[2022-11-17 02:09] VITALS: O2SAT 96
[2022-11-17] MEDS ORDERED: Hydromorphone 1 mg/ml Injection ONE (02:12)
[2022-11-17] MEDS ORDERED: Hydromorphone 1 mg/ml Injection IV ONE (02:21)
--- NOTE | 2022-11-17 02:29 | XRAY ---
CLINICAL HISTORY:upper abd pain/vomiting/diarrhea COMPARISON:03/19/2022. TECHNIQUES:CT scan of the abdomen and pelvis was performed with IV contrast. 80 cc Isovue 370/100ml was administered as intravenous contrast agent. Coronal and sagittal reconstructive images were also obtained. FINDINGS: The liver is normal in size. No focal or diffuse parenchymal abnormality. The portal vein, intrahepatic biliary radicals and the bile ducts are normal. The spleen, pancreas, adrenal glands are unremarkable. The kidneys are unremarkable. They are normal in size and shape. No calculi or hydronephrosis. The gallbladder is normal. No pericholecystic collection or radio dense calculi in the gall bladder. The ascending colon, the transverse colon, the descending colon, visualized small bowel loops are unremarkable.Appendix is normal. No acute bony pathology seen. Right ovary contains a developing follicle measuring 3.1 x 2.8 cm with enhancing olguin. Left ovary appeared unremarkable. Uterus appears unremarkable. IMPRESSION: Developing follicle in the right ovary. No interval changes. Electronically Signed by: Ewa Wolf MD. (11/17/2022 01:17:37 [employer])
[2022-11-17] MEDS ORDERED: PROTONIX 40 MG IV IV ONE ×2 (03:13→03:16)
[2022-11-17 03:23] VITALS: BP 151/106; PULSE 88; RESP 20
== END 2022-11-17 03:36 | disposition home or self-care (01) ==
LOC: ED 23:29
DX: K52.9 Noninfective gastroenteritis and colitis, unspecified (principal); R10.10 Upper abdominal pain, unspecified; R11.2 Nausea with vomiting, unspecified; E10.65 Type 1 diabetes mellitus with hyperglycemia; I10 Essential (primary) hypertension; Z79.899 Other long term (current) drug therapy; Z72.0 Tobacco use
CPT/HCPCS: 36000; 36415; 74177; 80053; 81001; 81025; 82805; 83605; 83690; 85025; 96360; 96374; 96375; 96376; 99284; J1170; J2405

== ENCOUNTER 2022-11-18 19:34 | Emergency (ER) | payer OTHER ==
[2011-11-29 06:39] VITALS: BP 135/78
== END 2022-11-18 19:37 | disposition left against medical advice (07) ==
LOC: ED 19:34
DX: Z53.21 Procedure and treatment not carried out due to patient leaving prior to being seen by health care provider (principal)

== ENCOUNTER 2024-08-03 12:29 | Emergency (ER) | payer BC ==
[2024-08-03 12:44] VITALS: TEMP 97.7; O2SAT 100
[2024-08-03 13:31] LABS: Absolute Neutrophil Ct (ANC) 4.72 x10^3/uL (1.56-6.13); BASOPHIL % 0.9 % (0.1-1.2); Basophil (Absolute #) 0.06 x10^3/uL (0.01-0.08); Eosinophil % 1.3 % (0.7-5.8); Eosinophil (Absolute #) 0.09 x10^3/uL (0.04-0.36); Hematocrit 35.3 % (34.1-44.9); Hemoglobin 12.4 g/dL (11.2-15.7); IMMATURE GRAN # 0.02 x10^3u/L (0.001-0.031); IMMATURE GRAN % 0.3 % (0.001-0.429); Lymphocyte (Absolute #) 1.67 x10^3/uL (1.18-3.74); Lymphocytes % 23.7 % (19.3-51.7); Mean Cell Volume 86.7 fL (79.4-94.8); Mean Corpuscular Hemoglobin 30.5 pg (25.6-32.2); Mean Corpuscular Hgb Concent. 35.1 g/dL (32.2-35.5); Mean Platelet Volume 8.9 fL (9.4-12.3); Monocyte (Absolute #) 0.48 x10^3/uL (0.24-0.86); Monocytes % 6.8 % (4.7-12.5); Platelet Count 226 x10^3/uL (182-369); Red Blood Count 4.07 x10^6/uL (3.93-5.22); Red Cell Distribution Width 12.9 % (11.7-14.4)
[2024-08-03 14:15] VITALS: BP 164/88; PULSE 77; RESP 19
--- NOTE | 2024-08-03 14:18 | ERPHSYRPT ---
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 Pt ambulates with an upright steady gait, able to speak in clear full sentences. Pt resting comfortably on the bed. Physician History: Patient was sent in by her work because she had elevated blood pressure. Is around 200/100. She says she just was not feeling right. She checked her sugars and it was around 80. She is type I diabetic. She also has hypertension and takes medicines for it.She said she was feeling jittery on the inside. I asked her about panic or anxiety and does not sound like that that is the case. She really does not have a history of that and she does not have anything caught to cause that at this time. What she was describing did sound like a panic attack. She did not have any chest pain or shortness of breath. She just feltJittery on the inside she says. It is mainly in her chest. She did not have any fever chills nausea vomiting or other systemic symptoms. 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 They checked her sugar it was 80 and then checked her blood pressure and it was elevated. When she got here she is around 150/90. She said she was feeling back to normal.She has no complaints at this time. Allergies/Adverse Reactions: aspirin Allergy (Severe, Verified 12/16/23 09:03) Difficulty Breathing NSAIDS (Non-Steroidal Anti-Inflamma Allergy (Severe, Verified 12/16/23 09:03) Anaphylactic Reaction Penicillins Allergy (Severe, Verified 12/16/23 09:03) Anaphylactic Reaction vancomycin Allergy (Severe, Verified 12/16/23 09:03) red man syndrome amoxicillin [Amoxicillin] Allergy (Unknown, Verified 12/16/23 09:03) Hives lisinopril Allergy (Unknown, Verified 12/16/23 09:03) Itching morphine Allergy (Unknown, Verified 12/16/23 09:03) get mean Home Medications: Atorvastatin Calcium 40 mg PO HS 07/08/21 [History] Levothyroxine Sodium 50 Mcg [Synthroid 50 Mcg] 50 mcg PO DAILY 07/08/21 [History] Blood-Glucose Sensor [Dexcom G7 Sensor] 08/03/24 [History] Carvedilol 12.5 mg [Coreg 12.5 mg] 12.5 mg PO BID 08/03/24 [History] Dapagliflozin Propanediol [Farxiga] 10 mg PO DAILY 08/03/24 [History] Fenofibrate 160 mg PO 08/03/24 [History] Hydrochlorothiazide 25 mg [hydroDIURIL 25 MG] 25 mg PO DAILY 08/03/24 [History] Hx Tetanus, Diphtheria Vaccination/Date Given: Yes (2021) Hx Influenza Vaccination/Date Given: No Hx Pneumococcal Vaccination/Date Given: No Immunizations Up to Date: No Travel Risk - International Travel Have you traveled outside of the country in past 3 weeks: No - Emerging Infectious Disease Are you exhibiting symptoms associated with any current EIDs: No - Review of Systems Constitutional: No Symptoms Eyes: No Symptoms Ears, Nose, & Throat: No Symptoms Respiratory: No Symptoms Cardiac: No Symptoms Abdominal/Gastrointestinal: No Symptoms All Other Systems: Reviewed and Negative - Past Medical History Pertinent Past Medical History: Yes Neurological History: No Pertinent History ENT History: No Pertinent History Cardiac History: Hypertension Respiratory History: Asthma Endocrine Medical History: Diabetes Type I Musculoskeletal History: No Pertinent History GI Medical History: No Pertinent History History: No Pertinent History Psycho-Social History: No Pertinent History Female Reproductive Disorders: No Pertinent History Other Medical History: polycystic ovarian disease, miscarriage x2, pre eclamplsia - Past Surgical History Past Surgical History: Yes Neuro Surgical History: No Pertinent History Cardiac: No Pertinent History Respiratory: No Pertinent History Gastrointestinal: No Pertinent History Genitourinary: No Pertinent History Musculoskeletal: No Pertinent History Female Surgical History: Section, Dilation & Curettage Other Surgical History: tonsil, fatty tumor on leg, ingrown toenail Significant Family History: no pertinent family hx - Female History Hx Last Menstrual Period: 07/26/2024 Hx Now: No - Social History Smoking Status: Former smoker How long have you smoked: years Exposure to second hand smoke: Yes Drug Use: none - Social Determinants of Health Will the patient participate in the screening: Declined to provide - Nursing Vital Signs Nursing Vital Signs: Initial Vital Signs Temperature 97.7 F 08/03/24 12:39 Pulse Rate 78 08/03/24 12:39 Respiratory Rate 18 08/03/24 12:39 Blood Pressure 184/97 08/03/24 12:39 O2 Sat by Pulse Oximetry 100 08/03/24 12:39 Pain Scale Pain Intensity 0 - Physical Exam General Appearance: no apparent distress Respiratory Exam: normal breath sounds, No respiratory distress Cardiovascular Exam: regular rate/rhythm SpO2: 100 - Course Nursing assessment & vital signs reviewed: Yes Ordered Tests: Active Orders 24 hr Category Date Time Status EKG-ER Only STAT Care 08/03/24 12:59 Active CBC W DIFF Stat Lab 08/03/24 13:20 Completed CMP Stat Lab 08/03/24 13:20 Completed MAGNESIUM Stat Lab 08/03/24 13:20 Completed TSH [TSH, 3RD Generation] Stat Lab 08/03/24 13:20 Completed Lab/Rad Data: Laboratory Result Diagrams 08/03/24 13:20 08/03/24 13:20 Laboratory Results 08/03/24 08/03/24 Range/Units 13:20 13:20 WBC 7.0 (3.98-10.04) x10^3/uL RBC 4.07 (3.93-5.22) x10^6/uL Hgb 12.4 (11.2-15.7) g/dL Hct 35.3 (34.1-44.9) % MCV 86.7 (79.4-94.8) fL MCH 30.5 (25.6-32.2) pg MCHC 35.1 (32.2-35.5) g/dL RDW 12.9 (11.7-14.4) % Plt Count 226 (182-369) x10^3/uL MPV 8.9 L (9.4-12.3) fL Gran % 67.0 (34.0-71.1) % Immature Gran % (Auto) 0.3 (0.001-0.429) % Nucleat RBC Rel Count 0.0 (0.00-0.2) % Eos # (Auto) 0.09 (0.04-0.36) x10^3/uL Immature Gran # (Auto) 0.02 (0.001-0.031) x10^3u/L Absolute Lymphs (auto) 1.67 (1.18-3.74) x10^3/uL Absolute Monos (auto) 0.48 (0.24-0.86) x10^3/uL Absolute Nucleated RBC 0.00 (0.00-0.012) x10^3u/L Lymphocytes % 23.7 (19.3-51.7) % Monocytes % 6.8 (4.7-12.5) % Eosinophils % 1.3 (0.7-5.8) % Basophils % 0.9 (0.1-1.2) % Absolute Granulocytes 4.72 (1.56-6.13) x10^3/uL Basophils # 0.06 (0.01-0.08) x10^3/uL Sodium 139 (135-145) mmol/L Potassium 3.3 L (3.5-5.1) mmol/L Chloride 102 (98-107) mmol/L Carbon Dioxide 25 (22-30) mmol/L Anion Gap 15.4 H (5-15) MEQ/L BUN 12 (7-17) mg/dL Creatinine 0.56 (0.52-1.04) mg/dL Estimated GFR 125.1 ML/MIN Glucose 122 H (74-106) mg/dL Calcium 8.6 (8.4-10.2) mg/dL Magnesium 1.9 (1.6-2.3) mg/dL Total Bilirubin 0.50 (0.2-1.3) mg/dL AST 32 (14-36) U/L ALT 34 (0-35) U/L Alkaline Phosphatase 49 (38-126) U/L Serum Total Protein 6.9 (6.3-8.2) g/dL Albumin 3.9 (3.5-5.0) g/dL TSH 3rd Generation 1.426 (0.470-4.680) mIU/L - Progress Progress: unchanged Progress Note: I did a brief assessment on the patient and went to put in some orders. When I came back to complete the exam and encounter. She decided that she wanted to leave [place].Risk and benefits were discussed. She was allowed to leave AM believe that she left [place] because she could only have 1 visitor 08/03/24 14:25 - Departure Departure Disposition: AMA Clinical Impression: Elevated blood pressure reading in office with diagnosis of hypertension Condition: Stable Critical Care Time: No Referrals: GARLAND PATEL PA [Primary Care Provider, UNKNOWN] - Follow up/PCP as directed
[2024-08-03 14:19] LABS: ALBUMIN 3.9 g/dL (3.5-5.0); ANION GAP 15.4 MEQ/L (5-15); BILIRUBIN,TOTAL 0.5 mg/dL (0.2-1.3); Calcium 8.6 mg/dL (8.4-10.2); Creatinine 1 0.56 mg/dL (0.52-1.04); EST GLOMERULAR FILTRATION RATE 125.1 ML/MIN; MAGNESIUM 1.9 mg/dL (1.6-2.3); Potassium 3.3 mmol/L (3.5-5.1); TSH, 3RD Generation 1.426 mIU/L (0.470-4.680); Total Protein 6.9 g/dL (6.3-8.2)
== END 2024-08-03 14:00 | disposition left against medical advice (07) ==
LOC: ED 12:29
DX: I10 Essential (primary) hypertension (principal); E10.649 Type 1 diabetes mellitus with hypoglycemia without coma; Z79.84 Long term (current) use of oral hypoglycemic drugs; Z79.4 Long term (current) use of insulin; Z79.899 Other long term (current) drug therapy
CPT/HCPCS: 36415; 80053; 83735; 84443; 85025; 93005; 99283; 99284